=== PATIENT | female | born 1945 | race Caucasian/White ===

== ENCOUNTER → 2018-03-18 15:49 | Outpatient (CLI) | payer OTHER, SELFPAY ==
--- NOTE | 2018-03-18 15:52 | DI.RAD.S_ITS ---
PROCEDURE: XR HIP W PEL IF DONE BILAT 2V INDICATIONS: RIGHT HIP PAIN TECHNIQUE: AP pelvis with lateral view(s) of the bilateral hip(s). COMPARISON: None. FINDINGS: Bones: No fractures or dislocations. Pelvic ring appears intact. No suspicious bony lesions. There is moderately severe degenerative hip joint osteoarthritis very slightly greater on the left than the right. Soft tissues: The visualized bowel gas pattern is normal. No suspicious soft tissue calcifications. IMPRESSION: Left greater than right moderately severe hip joint osteoarthritis with near [id number] articulation at the lateral aspect of the acetabulum on the left. No trauma found. Dictated by: Dakota Jacobson M.D. on 03/18/2018 at 17:04 Approved by: Dakota Jacobson M.D. on 03/18/2018 at 17:04
== END ==
PROVIDERS: Family Provider Physician Assistant; PCP Physician Assistant; Visit Provider Physician Assistant
DX: M16.0 Bilateral primary osteoarthritis of hip (principal); M25.551 Pain in right hip
CPT/HCPCS: 73521

== ENCOUNTER → 2018-05-16 10:22 | Outpatient (CLI) | payer OTHER, SELFPAY ==
--- NOTE | 2018-05-16 | DI.RAD.S_ITS ---
This blank DEXA report has been sent in error by the PACS system. The correct and complete report will be forthcoming in 1-2 days. Thank you for your patience and understanding. Dictated by: Edmond Aguirre M.D. on 05/16/2018 at 12:12 Approved by: Edmond Aguirre M.D. on 05/16/2018 at 12:12
== END ==
PROVIDERS: PCP Physician Assistant; Visit Provider Physician Assistant
DX: M85.851 Other specified disorders of bone density and structure, right thigh (principal); Z78.0 Asymptomatic menopausal state; Z82.62 Family history of osteoporosis
CPT/HCPCS: 77080

== ENCOUNTER → 2019-01-09 08:04 | Outpatient (CLI) | payer OTHER, SELFPAY ==
--- NOTE | 2019-01-09 | DI.MG.S_ITS ---
BILATERAL DIGITAL SCREENING MAMMOGRAM 3D/2D WITH CAD: 01/09/2019 CLINICAL: Routine screening. Family history of breast cancer. Comparison is made to exams dated: 07/02/2017 mammogram - [facility], 01/28/2015 mammogram, and 02/10/2013 mammogram - [facility]. The tissue of both breasts is heterogeneously dense. This may lower the sensitivity of mammography. Current study was also evaluated with a Computer Aided Detection (CAD) system. No significant masses, calcifications, or other findings are seen in either breast. There has been no significant interval change. IMPRESSION: NEGATIVE There is no mammographic evidence of malignancy. A 1 year screening mammogram is recommended. This exam was interpreted at Station ID: [id number]. NOTE: For mammograms, a report in lay terms will be sent to the patient. Approximately 15% of breast malignancies will not be visualized mammographically. In the management of a palpable breast mass, a negative mammogram must not discourage biopsy of a clinically suspicious lesion. Electronically Signed By: Masood valencia/bethanie:01/09/2019 09:28:28 letter sent: Normal Exam ACR BI-RADS Category 1: Negative [id number]
== END ==
PROVIDERS: PCP Registered Nurse; Visit Provider Registered Nurse
DX: Z12.31 Encounter for screening mammogram for malignant neoplasm of breast (principal); Z80.3 Family history of malignant neoplasm of breast
CPT/HCPCS: 77063; 77067

== ENCOUNTER → 2019-03-05 14:42 | Outpatient (CLI) | payer OTHER, SELFPAY ==
[2019-03-05 15:02] LABS: Bacteria Urine None Seen; WBC Urine None Seen (0-5/HPF)
[2019-03-05 15:18] LABS: Appearance Urine UA CLEAR; Bilirubin Urine UA NEGATIVE (NEGATIVE); Color Urine UA YELLOW; Glucose Urine UA NEGATIVE (Negative); Ketones Urine UA NEGATIVE (NEGATIVE); Leukocyte Esterase Urine UA NEGATIVE (NEGATIVE); Nitrite Urine UA NEGATIVE (Negative); Occult Blood Urine UA 1+ (Negative); Protein Urine UA NEGATIVE (Negative); Specific Gravity Urine UA 1.015 (1.000-1.035); Urobilinogen Urine UA 0.2 E.U./dL (0.2)
[2019-03-05 15:21] LABS: pH Urine UA 6.5 (4.5-8.0)
[2019-03-05 15:24] LABS: Amorphous Sediment Urine 1+; Culture Indicated Urine Cult Not Indicated; RBC Urine 0-1/HPF (0-5/HPF); Squamous Epithelial Cell Urine 0-1 /HPF (0-5/HPF)
[2019-03-05 15:25] LABS: Hematocrit 41.8 % (36-46); Mean Corpuscular HGB Conc 33.6 % (30-36); Mean Corpuscular Hemoglobin 30.2 PG (26-34); Mean Corpuscular Volume 89.7 fL (80-100); Platelet Count 279 X10^3/uL (150-400); Red Blood Cell Count 4.65 X10^6/uL (4.0-5.2); White Blood Cell Count 7.3 X10^3/uL (4.5-11.0)
[2019-03-05 15:39] LABS: Hemoglobin A1C% w Est Avg Glu 5.5 % (4.0-6.0)
[2019-03-05 16:09] LABS: BUN Creatinine Ratio 31.4 (6-22); Blood Urea Nitrogen 22 mg/dL (7-17); Calcium 9.8 mg/dL (8.4-10.2); Carbon Dioxide 31 mmol/L (22-32); Chloride 102 mmol/L (98-107); Estimated Glomerular Filt Rate > 60.0 mL/min (>60); Glucose 118 mg/dL (80-110); HEMOLYSIS < 15 (0-50); Sodium 140 mmol/L (137-145)
== END ==
PROVIDERS: Family Provider Registered Nurse; PCP Registered Nurse; Visit Provider Orthopaedic Surgery
DX: N39.0 Urinary tract infection, site not specified (principal); R73.9 Hyperglycemia, unspecified; Z01.818 Encounter for other preprocedural examination
CPT/HCPCS: 36415; 80048; 81001; 83036; 85027; 93005

== ENCOUNTER 2019-03-27 06:10 | Inpatient (IN) | payer OTHER, SELFPAY ==
[2019-03-13 13:58] VITALS: BMI 23.3
[2019-03-27] VITALS (19 sets, daily range): BP systolic 99–134; BP diastolic 46–94; PULSE 64–91; RESP 8–19; TEMP 36.3–36.8; O2SAT 94–100; BMI 22.6
--- NOTE | 2019-03-27 06:00 | DI.RAD.S_ITS ---
PROCEDURE: XR HIP W PEL IF DONE RT 2V INDICATIONS: post op TECHNIQUE: AP pelvis and lateral view of the right hip acquired. COMPARISON: [facility], [place], XR HIP W PEL IF DONE BILAT 2V, 03/18/2018, 15:28. FINDINGS: Bones: Patient is status post right hip arthroplasty, with hardware components in expected positions. The hip joint appears congruent. The visualized bony structures appear intact. Severe left hip joint degeneration which appears unchanged. Soft tissues: Overlying postoperative changes are noted. No suspicious soft tissue densities. IMPRESSION: Expected postoperative appearance. Dictated by: Fredy Hood M.D. on 03/27/2019 at 12:54 Approved by: Fredy Hood M.D. on 03/27/2019 at 12:55
[2019-03-27] MEDS: LACTATED RINGERS 1,000 ML 42 ML IV ×2 (06:45→11:59)
[2019-03-27] MEDS: VANCOMYCIN 1,000 MG/200 ML PIGGYBACK 200 MG IV ×2 (07:00→18:40)
[2019-03-27] MEDS: PREGABALIN 75 MG CAPSULE PO (07:03)
[2019-03-27] MEDS: CELECOXIB 200 MG CAPSULE PO (07:03)
[2019-03-27] MEDS: ACETAMINOPHEN 325 MG TABLET 975 MG PO ×2 (07:03→21:29)
--- NOTE | 2019-03-27 07:48 | PM.PREOP ---
Pre-operative Note Interval Note History & Physical reviewed/Exam performed by Physician: Yes Changes to H&P: No
--- NOTE | 2019-03-27 07:48 | PM.OP.1 ---
Operative Date/Time/Diagnoses Date of procedure: 03/27/19 Time of procedure: 07:59 Pre-op diagnosis: right hip OA Post-op diagnosis: same Procedure & Clinicians Procedure: Right total hip arthroplasty anterior Same procedure as scheduled: Yes Indications: The patient has had progressively worsening right hip pain with radiographic changes consistent with arthritis. Non-operative management has failed and the patient has requested total hip replacement. The risks, benefits and alternatives to surgery were discussed with the patient prior to proceeding. Risks discussed included, but were not limited to, failure to relieve pain, leg length discrepancy, dislocation, stiffness, infection, nerve damage, deep venous thrombosis, pulmonary embolism, stroke, coma, heart attack, permanent paralysis and , as well as the potential need for eventual revision of the prosthetic. Surgeon: Adele Yeung Diesel Mechanic Apprentice: Edelmira Banegas Anesthesia Type: General and Spinal Operative Notes Findings: Severe right hip osteoarthritis, good stability, adequate quality bone Closure Type: primary Specimen(s): none sent Prosthetic devices, grafts, tissues, transplants, or devices: Yeung and Nephew 50 R3, one 15 mm screw, size 6 standard offset anthology, 32 by -3 head Estimated Blood Loss (mL): 250 Blood products transfused: none Procedure in detail: The patient was brought to the operating room. Patient was carefully positioned in the supine position. Time-out was performed and antibiotics were given. Anesthesia was induced. She was positioned in the on the table in order to allow hyperextension of the hip. The right lower extremity was prepped and draped in a standard sterile fashion. An anterior right hip incision was made 1 fingerbreadth lateral to the anterior superior iliac spine and extended distally towards the greater trochanter. Dissection was carried out through skin and subcutaneous tissues. The skin and subcutaneous tissues were carefully injected with Lidocaine with epi. Superficial hemostasis was achieved. The fascia over the tensor fascia felicita was defined and incised with a knife. Two Allis clamps were used to grasp the fascia. Tensor fascia felicita was retracted laterally. A gelpi retractor was placed. Dissection was carried out down along the neck. The circumflex vessels were carefully identified and cauterized with the Aqua Mantis. There was good visualization of the femoral neck. A Cobra was placed superior to the neck and the gluteus fibers were carefully stripped from that superior aspect of the capsule. A 2nd retractor was placed along the inferior aspect of the neck. The rectus insertion along the capsule was partially released. A 3rd retractor that was then gently placed over the rim of the acetabulum under the rectus. Capsule was carefully incised and released from the intertrochanteric line circumferentially superior to the mid sagittal line and inferiorly to the mid sagittal line until the lesser trochanter was palpable. A tag stitch was placed both in the superior and inferior limb of the capsular insertion. Along the acetabulum capsule was also released up to the mid sagittal 12:00 position. A portion of the labrum was resected. A saw was used to perform an osteotomy at the level of the intertrochanteric line and the junction of the superior femoral neck leaving approximately 1 finger breath of residual inferior neck above the lesser trochanter. A 2nd cut was made along the femoral neck at the base of the head and a napkin ring of neck was removed. Corkscrew was placed in the femoral head and the head was removed without difficulty. Retractors were then repositioned around the acetabulum. Residual labrum was resected and additional osteophytes were removed. A reamer that was 4 mm below the templated size was placed by hand in the acetabulum and it was reamed to centralize the acetabulum. It was then reamed up to 2 under the templated size and fluoroscopy was brought in to confirm the position of the reaming and depth of reaming. I reamed 1 under the anticipated size. A trial cup was placed and noted that it was appropriately sized and fluoroscopy confirmed position and depth. The component was open and inserted without difficulty fluoroscopic imaging was used to confirm that the cup had been adequately seated and was well positioned. A single 15 mm screw was placed to further stabilize the cup. Neutral poly trial liner was placed. The cup was tested and noted to be stable. Attention was then directed to the femur. The femur was gently hyperextended additional capsular release was performed as needed in order to allow adequate visualization of the proximal femur with elevation of the femur. Patient was placed in a hyperextended slightly adducted position with maximum external rotation. Box osteotome was used to check for any residual neck as well as sclerotic bone along the trochanter. Burgaw pepper was placed in the femur. Additional broaching was performed. Canal finder was used to determine the alignment of the canal and position. Size 1 broach was placed. The canal was then appropriately broached up to the templated size as long as there was adequate stability of the broach and serial advancement of the broach without excessive impingement. Specific attention was directed at avoiding varus attempting to direct the distal aspect of the broach more anteriorly and avoiding excessive anteversion. Trial reduction showed acceptable range of motion, good stability, no posterior impingement, mandaeism of leg length and appropriate lateral shuck. I also hyperflexed the hip and checked that there was no impingement anteriorly and there was good stability with flexion, adduction and internal rotation. Final neutral poly was placed without difficulty. Marcaine and Exparel were injected.. The stem was placed without difficulty. Repeat trial reduction and x-ray showed acceptable overall position, length, and no evidence of the femoral fracture. Final head was placed. Wound was meticulously irrigated with normal saline. The hip was reduced and additional Exparel and Marcaine were injected. The capsule was closed with interrupted nonabsorbable sutures. The fascia of the tensor was closed with interrupted and running Vicryl. No drain was placed. Any tensor fascia felicita muscle that appeared to be contused or injured which was a minimal amount was carefully resected. Capsule around the tensor was injected with Exparel and Marcaine. The skin was closed with barbed stitches for the subcutaneous tissue and skin. We also used surgical glue. The wound was dressed sterilely. Brief Betadine soak was also used and was meticulously irrigated with normal saline. Patient was transferred to recovery room in satisfactory condition. Complications: none Post-operative Condition: stable Disposition: Acute Care Plan for aftercare: The patient will be maintained on a standard total hip replacement protocol with weight bearing as tolerated and anterior hip precautions. The patient will receive Aspirin and sequential compression devices for DVT prophylaxis. The patient will be discharged home when safe for the home environment.
[2019-03-27] MEDS: CLINDAMYCIN 600 MG/50 ML PIGGYBACK 50 MG IV (07:53)
--- NOTE | 2019-03-27 08:35 | SUR.OPER ---
Head on donut. Supine on [place] table with bilateral legs secured in traction. Right arm across chest, secured with sheet. Left arm secured to armboard.
[2019-03-27] MEDS: BUPIVACAINE 0.25% W/ EPI 30 ML VIAL 60 ML INJ (08:41)
[2019-03-27] MEDS: BUPIVACAINE LIPOSOME 266 MG/20 ML VIAL INJ (08:42)
[2019-03-27] MEDS: TRANEXAMIC ACID 1,000 MG VIAL 1000 MG INJ ×2 (08:43→10:47)
--- NOTE | 2019-03-27 09:12 | CM.IDA ---
Discharge Planning/Care Management CM Discharge Assessment Start: 03/27/19 09:07 Freq: Status: Active Protocol: Document 03/27/19 09:07 ORLIN (Rec: 03/27/19 09:12 ORLIN [id number]) Discharge Planning Assessment Assigned Senior Contract Specialist ANASTACIO Edwards DPOA/Assigned Designee Name Senthil () Contact Information [phone] Advance Directives? Yes Advance Directives on File No History Provided By Medical Record Prior Living Arrangements House Household Members spouse Type of transporation used prior to Drives own vehicle admit Independent with ADL's Yes Is patient alert and oriented? Yes Patient/Family Preference OP PT Therapy Barriers to Discharge No Comment Pending clearance from therapy team s/p hip surgery Discharge Plan Home Transportation Arrangement Family Referrals Initiated None needed Additional Comment Pending therapy reji pt wants to return home Review Status In Process
[2019-03-27] MEDS: HYDROMORPHONE 2 MG INJ 1 MG IV (11:32)
[2019-03-27] MEDS: hydrOXYzine 50 MG/ML INJ 25 MG IM (11:33)
[2019-03-27] MEDS: HYDROMORPHONE 2 MG INJ 0.5 MG IV ×2 (11:48→12:01)
--- NOTE | 2019-03-27 12:44 | SUR.PHASEI ---
report given to charge nurse in acute care. RN taking pt is Chloe. Traveled to on 2L 02 for shallow breaths, all other VS are stable. Transferred to in stable condition.
[2019-03-27] MEDS: LACTATED RINGERS 1,000 ML 125 ML IV ×2 (14:55→23:26)
--- NOTE | 2019-03-27 15:47 | PC.NURSE ---
Day Shift- PACU reported called to RN Coordinator Ann. Pt arrived onto unit at 1250, [employer]OVELTY [employer]KER & RN Coordinator settled pt on arrival. This RN assessed pt at 1340. Pt drowsy, arousable, does close eyes and fall asleep during conversation. Pt's Senthil present in room. Pt's post op outpatient meds in room, asked jules to keep with him and that any medication would come from this hospital pharmacy per protocol. Senthil agreeable with this. Pt right hip anterior aquacel dressing CDI, CMS+, pt denies pain, no urge to void. O2 sat 99% on 2L NC, decreased to 1L NC, O2 sat 97%. Pt oriented to filiberto light, post op routines, use of incentive spirometer, ankle pumps. Pt's asking for pt's glasses in a flower case that went with pt to surgery. PACU called around 1445, they have glasses and will bring to pt.
--- NOTE | 2019-03-27 15:53 | PT.IIE ---
Note completed by PT student Trixie Colon. I certify that I have reviewed this documentation and is involved in this pt's tx. Current Diagnoses Unilateral primary osteoarthritis, right hip (03/27/19) Surgery Performed Operation Date: 03/27/19 07:45 Actual Procedures p Total Hip Arthroplasty/Anterior Approach(Right) - Adele Yeung MD Surgical History (Last Updated 03/13/19 @ 14:14 by Adry Alas RN) History of bunionectomy of both great toes (Acute) Hx of hand surgery (Acute) Hx of oral surgery (Acute ~06/2018) Medical History (Last Updated 03/13/19 @ 14:14 by Adry Alas RN) Arthritis (Acute) GERD with esophagitis (Acute) Hypoglycemia (Acute) Insomnia (Acute) Osteoarthritis (Acute) Physical Therapy Inpatient Evaluation/Re-Eval M1 PT/OT-IP Prior Functional Status Start: 03/27/19 16:59 Freq: NEEDED Status: Active Protocol: Document 03/27/19 15:53 MT (Rec: 03/27/19 17:43 MT [id number]) Medical Review Prior Functional Status Medical History Reviewed Yes Diet/Fluid Consistency Regular Communication Pt was able to verbally communicate Mobility and Gait Pt reported being independent with all mobility. She reported that she only had to use a single point cane the day before d/t R hip pain Activities of Daily Living and IADL's Pt reported independence with all ADL's/iADL's but said that she had trouble sometimes putting her socks on. Social History Household Members spouse Living Arrangements House Number of Floors (Floors) One Floor Number of Stairs To Enter/Railing? 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 PT-IP Current Condition Start: 03/27/19 16:59 Freq: NEEDED Status: Active Protocol: Document 03/27/19 15:53 MT (Rec: 03/27/19 17:43 MT [id number]) Physical Therapy Current Condition Current Condition Evaluation Date 03/27/19 Treatment Diagnosis reduced mobility and difficulty walking post R FERNANDO Onset Date 03/27/19 Precautions Anterior Hip Precautions No Hip Extension,No Hip External Rotation Weight Bearing Status Weight Bearing Status Weight Bear as Tolerated M3 PT-IP Subjective Start: 03/27/19 16:59 Freq: NEEDED Status: Active Protocol: Document 03/27/19 15:53 MT (Rec: 03/27/19 17:43 MT [id number]) Subjective Physical Therapy Visit Type Type Initial Evaluation Visit Start Time 15:53 Visit Stop Time 16:54 Total Visit Minutes 61 Number of AUTO APPRAISER Visits 0 Physical Therapy Visit Comments Patient Comments Pt remarked that she was very tired following her R FERNANDO surgery. Therapy Pain Assessment Pain When Pain Assessed At Rest Pain Present Pain Present Reassessed Location right hip Intensity 0 Scale Used increased during movement Description Aching,Dull Pain Behaviors Facial Grimacing Pain Management Techniques Apply Cold,Elevation,Re- positioning,Timing of Activity with Medications M4 PT-IP Mobility and Gait Start: 03/27/19 16:59 Freq: NEEDED Status: Active Protocol: Document 03/27/19 15:53 MT (Rec: 03/27/19 17:43 MT [id number]) PT-Bed Mobility Assessment Supine to Sit Supine to Sit Moderate Assistance,1 Person Assistance Sit to Supine Sit to Supine Minimal Assistance,1 Person Assistance Scooting Scooting to Edge of Bed Minimal Assistance PT-Transfer Assessment Sit to and From Stand Sit to and from Stand Moderate Assistance,1 Person Assistance Equipment Transfer Assistive Device Gait Belt,Front Wheeled Walker Orthotic/Prosthetic Devices or Brace: No Transfers Transfer Destination Bed,Bedside Commode Transfer Technique Stand Step Pivot Transfer Ability Level of Assist Moderate Assistance Comments Mobility Comments Pt was able to perform supine to sit transfer with modA and cueing for sequencing of movement. Pt was very slow with the movements, but was eventually able to completely perform movement with assistance for R leg movement. Pt transferred to/from bedside commode from bed with ModA. Once pt standing, she was able to stand with CGA. Pt's blood pressure was initally taken before initiaion of bed mobility assessment. Pt's BP was 111/ 41. Pt reported that she was feeling shakey and was tired. Nursing was notified of the BP. Pt's BP was then assessed in sitting and found to be 127/70. After pt tranferred to the commode her BP was found to be 134/54. Pt was positioned back in bed d/t increased shakiness with her call light in reach. Gait Assessment Comments Gait Comments pt unable to tolerate gait activities PT-Balance Assessment Sitting Balance and Reactions Static Sitting Balance Ability Good Dynamic Sitting Balance Ability Good Standing Balance and Reactions Static Standing Balance Ability Fair Dynamic Standing Balance Ability Fair Device Used 2WW M5 PT-IP Objective Assessments Start: 03/27/19 16:59 Freq: NEEDED Status: Active Protocol: Document 03/27/19 15:53 MT (Rec: 03/27/19 17:43 MT [id number]) Orientation Orientation/Cognition Level of Alertness Alert Orientation Name,Age,Birthday,Month,Date, Year,Day of Week,Place, Situation Safety Awareness Decreased Safety Awareness Memory Description Short Term Impaired Comments Pt was oriented, but struggled to maintain alertness during evaluation and was frequently falling asleep. This improved as pt began to move more. She struggled at first being able to form complete sentences, but this improved as the session went on. She was unable to recall her precautions for her anterior FERNANDO and reuiqres frequent cueing/reminding of what task she is trying to complete and sequencing to complete that task as well as safety. Gross Range of Motion Lower Extremity ROM Assessment Right Impaired Impairments Pt demonstrates pain and limited ROM with R hip flexion . Strength Lower Extremity Strength Assessment Bilaterally Impaired Hip R: 3-/5 hip flexion; L:4/5 hip flexion Knee R: 3/5 knee flexion/extension; L:WFL Ankle R: 3+/5 DF; L:WFL Comments Strength Comments Pt demonstrated generally R LE weakness. She also demonstrated some weakness on her L LE with hip flexion Coordination Assessment Gross Coordination Gross Coordination WNL Muscle Tone Muscle Tone WNL Yes M6 PT-IP Treatment Start: 03/27/19 16:59 Freq: NEEDED Status: Active Protocol: Document 03/27/19 15:53 MT (Rec: 03/27/19 17:43 MT [id number]) Physical Therapy Treatment Education Education Provided Precautions,Weight Bearing Status,Post-Op Packet,Safety M7 PT-IP Assessment and Plan Start: 03/27/19 16:59 Freq: NEEDED Status: Active Protocol: Document 03/27/19 15:53 MT (Rec: 03/27/19 17:43 MT [id number]) PT Summary Assessment and Plan Potential Rehabilitation Potential Good Status of Condition at Evaluation Evolving Summary Impairments Pain,ROM,Strength,Balance, Cognition,Bed Mobility, Transfers,Gait,Activity Tolerance Assessment Summary Pt presents with decreased mobility s/p R FERNANDO. She presented with lethargy and was frequently falling asleep during history-taking portion of eval but became more alert as she moved. She is able to perform supine <> sit bed mobility with Min-ModA, but struggles with sequencing of steps to achieve functional task and requires max verbal cues. Pt's BP was 111/44 prior to initiating movement and elevated as pt performed mobility tasks (see Mobility Assessment for full description). Pending that her is able to safely assist her and that she increases her ability to ambulate safely, she will be able to discharge home with assistance from her . Goals Bed Mobility Goal Standby Assistance Transfer Goal Standby Assistance,Front Wheeled Walker Gait Goal Standby Assistance,Front Wheel Walker Gait Distance 100 ft Days to Meet Goals 5 Frequency of Treatment Frequency Of Treatment Twice a Day Treatment Plan Physical Therapy Treatment Plan Bed Mobility Training,Transfer Training,Gait Training, Therapeutic Exercise,Balance Retraining,Post Op Education, Discharge Planning,Hot or Cold Pack,Neuromuscular Re-ed Other Recommendations and Next Treatment next treatment to focus on Focus increasing independence for sequencing and safety with bed mobility and transfers, gait training, caregiver training Recommendations To Nursing Amount of Assist Needed 1 Person Assist Discharge Recommendations PT Discharge Recommendations Home with Assistance, Outpatient PT Other Discharge Recommendations Pt will be able to receive assistance from her at home. She has outpatient PT set up.
[2019-03-27] MEDS: OXYCODONE IR 5 MG TABLET PO ×2 (18:40→21:30)
[2019-03-27] MEDS: ASPIRIN EC 81 MG TABLET PO (21:29)
[2019-03-27] MEDS: DOCUSATE 100 MG CAPSULE PO (21:29)
[2019-03-27] MEDS: NAPROXEN 250 MG TABLET PO (21:29)
[2019-03-28 00:15] VITALS: BP 106/54; PULSE 74; RESP 16; TEMP 36.5; O2SAT 94
--- NOTE | 2019-03-28 05:10 | PC.NURSE ---
No c/o pain this shift. Used the bedpan for urination. Aquacell dressing CDI.
[2019-03-28 05:12] VITALS: BP 113/55; PULSE 65; RESP 16; TEMP 36.4; O2SAT 98
[2019-03-28 07:04] LABS: Hematocrit 32.9 % (36-46); Hemoglobin 11.3 g/dL (12.0-16.0)
[2019-03-28] MEDS: OXYCODONE IR 5 MG TABLET PO ×2 (07:33→10:13)
[2019-03-28 07:45] VITALS: BP 148/54; PULSE 63; RESP 16; TEMP 36.5; O2SAT 100
[2019-03-28] MEDS: NAPROXEN 250 MG TABLET PO (08:59)
[2019-03-28] MEDS: ASPIRIN EC 81 MG TABLET PO (08:59)
[2019-03-28] MEDS: ACETAMINOPHEN 325 MG TABLET 975 MG PO ×2 (08:59→14:39)
[2019-03-28] MEDS: DOCUSATE 100 MG CAPSULE PO (08:59)
--- NOTE | 2019-03-28 09:50 | PT.IPTN ---
Current Diagnoses Unilateral primary osteoarthritis, right hip (03/27/19) Surgery Performed Operation Date: 03/27/19 07:45 Actual Procedures p Total Hip Arthroplasty/Anterior Approach(Right) - Adele Yeung MD Physical Therapy Treatment Note M2 PT-IP Current Condition Start: 03/27/19 16:59 Freq: NEEDED Status: Active Protocol: Document 03/27/19 15:53 MT (Rec: 03/27/19 17:43 MT [id number]) Physical Therapy Current Condition Current Condition Evaluation Date 03/27/19 Treatment Diagnosis reduced mobility and difficulty walking post R FERNANDO Onset Date 03/27/19 Precautions Anterior Hip Precautions No Hip Extension,No Hip External Rotation Weight Bearing Status Weight Bearing Status Weight Bear as Tolerated M3 PT-IP Subjective Start: 03/27/19 16:59 Freq: NEEDED Status: Active Protocol: Document 03/28/19 09:50 AB (Rec: 03/28/19 10:58 AB [id number]) Subjective Physical Therapy Visit Type Type Treatment Note Visit Start Time 09:50 Visit Stop Time 10:30 Total Visit Minutes 40 Number of INVERTED BLOCK OPERATOR Visits 0 Physical Therapy Visit Comments Patient Comments pt agreeable to do PT Therapy Pain Assessment Pain When Pain Assessed At Rest Pain Present Pain Present Pain Reported Location right hip Intensity 2 Scale Used increases to 5/10 with mobility Pain Behaviors Guarding Pain Management Techniques Apply Cold,Re-positioning, Timing of Activity with Medications M4 PT-IP Mobility and Gait Start: 03/27/19 16:59 Freq: NEEDED Status: Active Protocol: Document 03/28/19 09:50 AB (Rec: 03/28/19 10:58 AB [id number]) PT-Bed Mobility Assessment Supine to Sit Supine to Sit Minimal Assistance,1 Person Assistance Sit to Supine Sit to Supine Standby Assistance Scooting Scooting to Edge of Bed Standby Assistance Scooting Up and Down in Bed Standby Assistance PT-Transfer Assessment Sit to and From Stand Sit to and from Stand Minimal Assistance,1 Person Assistance Equipment Transfer Assistive Device Gait Belt,Front Wheeled Walker Orthotic/Prosthetic Devices or Brace: No Transfers Transfer Destination Bed Transfer Technique pt ambulated using FWW Transfer Ability Level of Assist Standby Assistance,1 Person Assistance,Use of Upper Extremities Comments Mobility Comments pt found sitting on chair. BP: 103/52. completed sit to stand. pt was able to maintain standing SBA using FWW for support. BP: 118/67. pt was ablet o tolerate ~ 3 min of standing. BP: 115/53. Pt ambulated in room using FWW SBA to occasional CGA 30 ft. BP after walkin/49. pt agreed to ambulate in hallway. spouse present and educated spouse on how to assist and cue pt with bed mobility, transfers and ambulation. spouse was able to cue pt appropriately. bed mobility training: pt required min A for RLE elevation to the bed during supine to sit. educated spouse on how to assist pt with bed mobility. completed sit to supine SBA. pt requested to stay up on chair after tx session. positioned on the chair. call light and table placed within reach. BP: 119/65 Gait Assessment Gait Gait Assistance Required: Standby Assistance,Contact Guard Assist Distance (Feet) 75 Able to Maintain Weight Bearing Status Yes During Gait Assistive Devices Assistive Device Gait Belt,Front Wheeled Walker Orthotic/Prosthetic Devices or Brace: No Gait Deviations General Gait Pattern Antalgic,Decreased Stride Length,Decreased Feet Clearance Factors Limiting Gait Function Factors Limiting Gait Function Decreased Activity Tolerance, Decreased Strength,Difficulty Following Directions,Limited Range of Motion,Pain,Poor Balance,Poor Safety Awareness M5 PT-IP Objective Assessments Start: 03/27/19 16:59 Freq: NEEDED Status: Active Protocol: Document 03/27/19 15:53 MT (Rec: 03/27/19 17:43 MT [id number]) Orientation Orientation/Cognition Level of Alertness Alert Orientation Name,Age,Birthday,Month,Date, Year,Day of Week,Place, Situation Safety Awareness Decreased Safety Awareness Memory Description Short Term Impaired Comments Pt was oriented, but struggled to maintain alertness during evaluation and was frequently falling asleep. This improved as pt began to move more. She struggled at first being able to form complete sentences, but this improved as the session went on. She was unable to recall her precautions for her anterior FERNANDO and reuiqres frequent cueing/reminding of what task she is trying to complete and sequencing to complete that task as well as safety. Gross Range of Motion Lower Extremity ROM Assessment Right Impaired Impairments Pt demonstrates pain and limited ROM with R hip flexion . Strength Lower Extremity Strength Assessment Bilaterally Impaired Hip R: 3-/5 hip flexion; L:4/5 hip flexion Knee R: 3/5 knee flexion/extension; L:WFL Ankle R: 3+/5 DF; L:WFL Comments Strength Comments Pt demonstrated generally R LE weakness. She also demonstrated some weakness on her L LE with hip flexion Coordination Assessment Gross Coordination Gross Coordination WNL Muscle Tone Muscle Tone WNL Yes M6 PT-IP Treatment Start: 03/27/19 16:59 Freq: NEEDED Status: Active Protocol: Document 03/28/19 09:50 AB (Rec: 03/28/19 10:58 AB [id number]) Physical Therapy Treatment Education Education Provided Precautions,Weight Bearing Status,Post-Op Packet,Safety M7 PT-IP Assessment and Plan Start: 03/27/19 16:59 Freq: NEEDED Status: Active Protocol: Document 03/28/19 09:50 AB (Rec: 03/28/19 10:58 AB [id number]) PT Summary Assessment and Plan Potential Rehabilitation Potential Good Summary Impairments Pain,ROM,Strength,Balance, Coordination,Sensation,Tone, Cognition,Bed Mobility, Transfers,Gait,Activity Tolerance Progress Towards Goals Progressing Toward Goals Assessment Summary pt requiring SBA to occasional CGA with transfers and ambulation. spouse will be able to assist pt at home. pt plans to go home later today. pt is already set up for outpt PT. Goals Bed Mobility Goal Standby Assistance Transfer Goal Standby Assistance,Front Wheeled Walker Gait Goal Standby Assistance,Front Wheel Walker Gait Distance 100 ft Days to Meet Goals 5 Frequency of Treatment Frequency Of Treatment Twice a Day Treatment Plan Physical Therapy Treatment Plan Bed Mobility Training,Transfer Training,Gait Training, Therapeutic Exercise,Balance Retraining,Post Op Education, Discharge Planning,Hot or Cold Pack,Neuromuscular Re-ed Recommendations To Nursing Amount of Assist Needed 1 Person Assist Discharge Recommendations PT Discharge Recommendations Home with Assistance, Outpatient PT
--- NOTE | 2019-03-28 14:43 | PC.NURSE ---
Day shift: Pt left unit at this time to private car via . Paperwork signed and all questions answered. Pt has all personal belongings as well as MD scrips. 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
== END 2019-03-28 14:44 | disposition home or self-care (01) | DRG 470 ==
PROVIDERS: Admitting Provider Orthopaedic Surgery; Family Provider Registered Nurse; PCP Registered Nurse; Visit Provider Orthopaedic Surgery
PROC: 0SR902Z Replacement of Right Hip Joint with Metal on Polyethylene Synthetic Substitute, Open Approach (ICD-10-PCS; CPT 27130; principal; 2019-03-27 07:45)
DX: M16.11 Unilateral primary osteoarthritis, right hip (principal)
CPT/HCPCS: 36415; 73502; 85014; 85018; 97116; 97162; 97530; C1776; C9290; J1100; J1170; J2250; J2405; J2704; J3010; J3410

== ENCOUNTER 2019-04-11 23:38 | Emergency (ER) | payer OTHER, SELFPAY ==
[2019-03-27 13:45] VITALS: BMI 22.6
--- NOTE | 2019-04-11 23:42 | DI.US.S_ITS ---
PROCEDURE: US PERIPH VENOUS LOW EXTREM RT INDICATIONS: PAIN, EDEMA POST OP TECHNIQUE: Real-time imaging, as well as color and pulse Doppler interrogation, were performed of the lower extremity deep veins from the inguinal ligament to the popliteal fossa. COMPARISON: None. FINDINGS: The common femoral, femoral and popliteal veins are normally compressible, and free of intraluminal thrombus. Color and pulse Doppler demonstrate normal phasic intraluminal flow. There is normal augmentation response to distal compression maneuver. IMPRESSION: Negative for deep venous thrombosis. Note: No significant discrepancy from the preliminary report. Dictated by: Rusty Ford M.D. on 04/12/2019 at 8:15 Approved by: Rusty Ford M.D. on 04/12/2019 at 8:16
--- NOTE | 2019-04-11 23:44 | ED.LOWEXIN ---
HPI - Extremity Injury (Lower) General Chief Complaint: Extremity Injury, Lower Stated Complaint: sudden sharp pain in r calf, had hip sgy 2 wks ago Time Seen by Provider: 04/11/19 23:42 Source: patient and family Mode of arrival: Ambulatory Limitations: no limitations History of Present Illness HPI Narrative: 73-year-old female nonsmoker presents with her and a chief complaint of a sudden onset right calf pain while standing in the kitchen just prior to her arrival. Her symptoms persisted about 15 minutes but had resolved prior to her arrival. She denies any ongoing symptoms whatsoever. She has no numbness, tingling or weakness. She denies any activities or injuries. She denies any dizziness, weakness or lightheadedness. She has no chest pain or shortness of breath. She had a right hip surgery on March 27 and was told to present to the emergency department immediately for any calf pain or swelling. She has been doing very well in the aftermath of her surgery and was at physical therapy today. MD complaint: other Onset (ago): minute(s) Place: home Exacerbating factors: movement Other symptoms: none Related Data Home Medications Medication Instructions Recorded Confirmed fluticasone propionate [Flonase 2 spray INTRANASAL DAILY PRN 03/13/19 03/27/19 Allergy Relief] naproxen sodium [Aleve] 220 mg PO BID 03/13/19 03/27/19 Previous Rx's Medication Instructions Recorded acetaminophen 975 mg PO TID #40 tab 03/28/19 aspirin 81 mg PO BID #40 tab 03/28/19 docusate sodium [DOK] 100 mg PO BID #30 cap 03/28/19 oxycodone 5 mg PO Q3HR PRN #1 tab 03/28/19 Allergies Allergy/AdvReac Type Severity Reaction Status Date / Time amoxicillin Allergy Severe Itching to Verified 04/11/19 23:48 hands/feet latex Allergy Severe Red skin, Verified 04/11/19 23:48 welts epinephrine AdvReac Severe Hyperactive, Verified 04/11/19 23:48 dizziness Review of Systems Constitutional Constitutional: Denies chills, Denies fatigue, Denies fever(s), Denies frequent falls, Denies lethargy and Denies weakness Eyes Eyes: Denies change in vision, Denies eye discharge, Denies irritation and Denies loss of vision ENT Ears, Nose, Mouth, and Throat: Denies change in voice, Denies dizziness, Denies neck pain, Denies sore throat and Denies throat swelling Cardiovascular Cardiovascular: Denies chest pain, Denies irregular heart rhythm, Denies lightheadedness, Denies palpitations, Denies dyspnea, Denies dyspnea on exertion and Denies orthopnea Respiratory Respiratory: Denies cough, Denies dyspnea, Denies dyspnea on exertion and Denies wheezing Gastrointestinal Gastrointestinal: Denies abdominal pain, Denies change in bowel habits, Denies diarrhea, Denies nausea and Denies vomiting Genitourinary Genitourinary: Denies hematuria, Denies flank pain, Denies urinary incontinence and Denies urinary urgency Musculoskeletal Musculoskeletal: Denies back pain, Denies muscle weakness, Denies neck pain, Denies numbness, Denies tingling and Reports other Integumentary/Breasts Skin/Breast: Denies pruritus, Denies erythema, Denies rash and Denies wounds Neurologic Neurologic: Denies behavioral changes, Denies confusion, Denies dizziness, Denies frequent falls, Denies loss of vision, Denies numbness, Denies tingling and Denies weakness Psychiatric Psychiatric: Denies anxiety, Denies behavioral changes, Denies confusion, Denies depression, Denies homicidal ideation and Denies suicidal ideation Endocrine Endocrine: Denies fatigue, Denies flushing and Denies palpitations Hematologic/Lymphatic Hematologic/Lymphatic: Denies easy bruising Allergic/Immunologic Allergic/Immunologic: Denies urticaria, Denies throat swelling and Denies wheezing Patient History Medical History Arthritis (Acute) GERD with esophagitis (Acute) Hypoglycemia (Acute) Insomnia (Acute) Osteoarthritis (Acute) Surgical History History of bunionectomy of both great toes (Acute) Hx of hand surgery (Acute) Hx of oral surgery (Acute ~06/2018) Social History household members: spouse Smoking Status: Never smoker alcohol intake: current alcohol intake frequency: a few times a week Substance Use Type: does not use Exam Narrative Exam Narrative: GEN: AOx3 and in mild distress EYES: Pupils are equal, round, and reactive to light and accommodation. Extraoccular muscles are intact bilaterally. There is no subconjunctival hemorrhage or exudate. CHEST: Lungs are clear to auscultation bilaterally and free of wheezes, rales, or rhonchi. Heart rate is regular rhythm, there are no murmurs, clicks, rubs, or gallops. There is no chest wall tenderness. ABD: Abdomen is soft and nontender. There is no guarding or rebound. Bowel sounds are normal in all 4 quadrants. There is no mass or organomegaly. EXT: Pain was palpation of right knee and calf. There is some swelling with yellowing bruising coming down from the hip. Dorsalis pedis and posterior tibial pulses are palpable. Cap refill less than 2 seconds and sensation intact. No pain with passive flexion and ankle. Full painless ROM of all extremities with no loss of sensation or strength. SKIN: Warm, pink, and dry. No erythema or rash Initial Vital Signs Initial Vital Signs: Vital Signs Temperature 98.2 F 04/11/19 23:46 Pulse Rate 74 04/11/19 23:46 Respiratory Rate 16 04/11/19 23:46 Blood Pressure 150/62 H 04/11/19 23:46 Pulse Oximetry 98 04/11/19 23:46 Course Orders Ordered: ED Orders 04/11/19 23:42 US periph venous low extrem rt Stat Vital Signs Vital signs: Vital Signs - 8 hr 04/11/19 23:46 Temperature 98.2 F Pulse Rate 74 Respiratory Rate 16 Blood Pressure 150/62 H Pulse Oximetry 98 Discharge Plan Departure Patient Disposition: Home Clinical Impression: Pain of right calf Discharge Date/Time: 04/12/19 00:20 Activity Restrictions/Additional Instructions: *You have been diagnosed with [right calf pain, resolved. Deep vein thrombosis considered but ultrasound was negative] *What to do: *Take medications as directed *Follow up with your primary care provider in 2-3 days, call for an appointment. Let them know you were seen in the Emergency Department and that we ask that you be seen in follow up *Return to ER if you should have any new, worsening or concerning symptoms, such as [recurrence of pain, development of warmth or redness. A recurrence of these symptoms would potentially warrant a repeat ultrasound] Prescriptions: No Action fluticasone propionate [Flonase Allergy Relief] 50 mcg/actuation [place],Suspension 2 spray INTRANASAL DAILY PRN (Reason: Seasonal allergies) RF: 0 naproxen sodium [Aleve] 220 mg Capsule 220 mg PO BID RF: 0 acetaminophen 325 mg Tablet 975 mg PO TID Qty: 40 RF: 0 aspirin 81 mg Tablet,Delayed Release (Dr/Ec) 81 mg PO BID Qty: 40 RF: 0 docusate sodium [DOK] 100 mg Capsule 100 mg PO BID Qty: 30 RF: 0 oxycodone 5 mg Tablet 5 mg PO Q3HR PRN (Reason: Pain, Moderate (4-6)) Qty: 1 RF: 0 Referrals: Juma Ramos ARNP [Primary Care Provider] - Adele Yeung MD [Physician] -
[2019-04-11 23:46] VITALS: BP 150/62; PULSE 74; RESP 16; TEMP 36.8; O2SAT 98; BMI 23.1
== END 2019-04-12 00:20 | disposition home or self-care (01) ==
PROVIDERS: Emergency Provider Emergency Medicine; PCP Registered Nurse
DX: M79.661 Pain in right lower leg (principal)
CPT/HCPCS: 93971; 99282; 99283

== ENCOUNTER → 2020-01-14 11:15 | Outpatient (CLI) | payer MEDICARE, SELFPAY ==
[2019-03-27 13:45] VITALS: BMI 22.6
--- NOTE | 2020-01-14 | DI.MG.S_ITS ---
BILATERAL DIGITAL SCREENING MAMMOGRAM 3D/2D WITH CAD: 01/14/2020 CLINICAL: Routine screening. Family history of breast cancer. Comparison is made to exams dated: 01/09/2019 mammogram, 07/02/2017 mammogram - [facility], and 01/28/2015 mammogram - [facility]. The tissue of both breasts is heterogeneously dense. This may lower the sensitivity of mammography. Current study was also evaluated with a Computer Aided Detection (CAD) system. No significant masses, calcifications, or other findings are seen in either breast. There has been no significant interval change. IMPRESSION: NEGATIVE There is no mammographic evidence of malignancy. A 1 year screening mammogram is recommended. This exam was interpreted at Station ID: [id number]. NOTE: For mammograms, a report in lay terms will be sent to the patient. Approximately 15% of breast malignancies will not be visualized mammographically. In the management of a palpable breast mass, a negative mammogram must not discourage biopsy of a clinically suspicious lesion. Electronically Signed By: Lam escobar/bethanie:01/14/2020 14:46:18 letter sent: Normal Exam ACR BI-RADS Category 1: Negative 3341F
== END ==
PROVIDERS: PCP Registered Nurse; Referring Provider Registered Nurse; Visit Provider Registered Nurse
DX: Z12.31 Encounter for screening mammogram for malignant neoplasm of breast (principal); Z80.3 Family history of malignant neoplasm of breast
CPT/HCPCS: 77063; 77067

== ENCOUNTER → 2021-02-03 17:18 | Outpatient (CLI) | payer MEDICARE, SELFPAY ==
[2019-03-27 13:45] VITALS: BMI 22.6
--- NOTE | 2021-02-03 | DI.MG.S_ITS ---
BILATERAL DIGITAL SCREENING MAMMOGRAM 3D/2D WITH CAD: 02/03/2021 CLINICAL: Routine screening. Family history of breast cancer. Comparison is made to exams dated: 01/14/2020 mammogram, 01/09/2019 mammogram, and 07/02/2017 mammogram - [facility]. The tissue of both breasts is heterogeneously dense. This may lower the sensitivity of mammography. Current study was also evaluated with a Computer Aided Detection (CAD) system. No significant masses, calcifications, or other findings are seen in either breast. There has been no significant interval change. IMPRESSION: NEGATIVE There is no mammographic evidence of malignancy. A 1 year screening mammogram is recommended. This exam was interpreted at Station ID: [id number]. NOTE: For mammograms, a report in lay terms will be sent to the patient. Approximately 15% of breast malignancies will not be visualized mammographically. In the management of a palpable breast mass, a negative mammogram must not discourage biopsy of a clinically suspicious lesion. Electronically Signed By: Elda wagner/bethanie:02/04/2021 08:42:43 letter sent: Normal Exam ACR BI-RADS Category 1: Negative 3341F
== END ==
PROVIDERS: PCP Registered Nurse; Referring Provider Registered Nurse; Visit Provider Registered Nurse
DX: Z12.31 Encounter for screening mammogram for malignant neoplasm of breast (principal); Z80.3 Family history of malignant neoplasm of breast
CPT/HCPCS: 77063; 77067

== ENCOUNTER → 2022-03-02 09:17 | Outpatient (CLI) | payer MEDICARE, SELFPAY ==
[2019-03-27 13:45] VITALS: BMI 22.6
--- NOTE | 2022-03-02 | DI.MG.S_ITS ---
BILATERAL DIGITAL SCREENING MAMMOGRAM 3D/2D WITH CAD: 03/02/2022 CLINICAL: Routine screening. Family history of breast cancer. Comparison is made to exams dated: 02/03/2021 mammogram, 01/14/2020 mammogram, and 01/09/2019 mammogram - [facility]. Both breasts are heterogeneously dense, which may obscure small masses (category c / 51-75% glandular tissue). Current study was also evaluated with a Computer Aided Detection (CAD) system. No significant masses, calcifications, or other findings are seen in either breast. There has been no significant interval change. IMPRESSION: NEGATIVE There is no mammographic evidence of malignancy. A 1 year screening mammogram is recommended. This exam was interpreted at Station ID: [id number]. NOTE: For mammograms, a report in lay terms will be sent to the patient. Approximately 15% of breast malignancies will not be visualized mammographically. In the management of a palpable breast mass, a negative mammogram must not discourage biopsy of a clinically suspicious lesion. Electronically Signed By: Richard ellison/bethanie:03/02/2022 09:59:31 letter sent: Normal Exam ACR BI-RADS Category 1: Negative 3341F
== END ==
PROVIDERS: PCP Registered Nurse; Referring Provider Registered Nurse; Visit Provider Registered Nurse
DX: Z12.31 Encounter for screening mammogram for malignant neoplasm of breast (principal); Z80.3 Family history of malignant neoplasm of breast
CPT/HCPCS: 77063; 77067

== ENCOUNTER → 2022-09-09 09:26 | Outpatient (CLI) | payer MEDICARE, SELFPAY ==
[2019-03-27 13:45] VITALS: BMI 22.6
[2022-09-09 10:28] LABS: Add Manual Diff / Slide Review NO; Appearance Urine UA CLEAR; Basophils Absolute Auto 100 /uL (0-100); Bilirubin Urine UA NEGATIVE (NEGATIVE); Color Urine UA YELLOW; Eosinophils Absolute Auto 100 /uL (0-450); Eosinophils Percent Auto 1.6 % (2-4); Glucose Urine UA NEGATIVE (Negative); Hematocrit 42.5 % (36-46); Hemoglobin 14.3 g/dL (12.0-16.0); Ketones Urine UA NEGATIVE (NEGATIVE); Leukocyte Esterase Urine UA 1+ (NEGATIVE); Lymphocytes Absolute Auto 1900 /uL (1100-4500); Mean Corpuscular HGB Conc 33.7 % (30-36); Mean Corpuscular Hemoglobin 30.2 PG (26-34); Mean Corpuscular Volume 89.5 fL (80-100); Monocytes Absolute Auto 300 /uL (0-900); Monocytes Percent Auto 6.1 % (3-14); Neutrophils Absolute Auto 3000 /uL (1500-7000); Neutrophils Percent Auto 55.3 % (50-75); Nitrite Urine UA NEGATIVE (Negative); Occult Blood Urine UA NEGATIVE (Negative); Platelet Count 245 X10^3/uL (150-400); Protein Urine UA NEGATIVE (Negative); Red Blood Cell Count 4.75 X10^6/uL (4.0-5.2); Red Cell Distribution Width 13.7 % (11.6-14.8); Urobilinogen Urine UA 0.2 E.U./dL (0.2); White Blood Cell Count 5.3 X10^3/uL (4.5-11.0)
[2022-09-09 10:40] LABS: Amorphous Sediment Urine 2+; Bacteria Urine Occasional (0-1); Blood Urea Nitrogen 17 mg/dL (7-17); Calcium 9.4 mg/dL (8.4-10.2); Carbon Dioxide 33 mmol/L (22-32); Chloride 99 mmol/L (98-107); Estimated Glomerular Filt Rate > 60 mL/min (>60); Glucose 91 mg/dL (80-110); HEMOLYSIS < 15 (0-50); Potassium 4.5 mmol/L (3.4-5.1); RBC Urine None Seen (0-5/HPF); Sodium 138 mmol/L (137-145); Squamous Epithelial Cell Urine 0-1 /HPF (0-5/HPF); WBC Urine 0-1/HPF (0-5/HPF)
[2022-09-09 10:41] LABS: Culture Indicated Urine Specimen Cultured
[2022-09-10 07:47] LABS: Labcorp Hemoglobin (Hb) A1c 5.9 % (4.8-5.6)
== END ==
PROVIDERS: PCP Registered Nurse; Referring Provider Orthopaedic Surgery; Visit Provider Orthopaedic Surgery
DX: Z01.818 Encounter for other preprocedural examination (principal); R73.9 Hyperglycemia, unspecified; Z01.812 Encounter for preprocedural laboratory examination; N39.0 Urinary tract infection, site not specified
CPT/HCPCS: 36415; 80048; 81001; 83036; 85025; 87086; 93005

== ENCOUNTER 2022-11-07 11:39 | Day surgery (SDC) | payer MEDICARE, SELFPAY ==
[2019-03-27 13:45] VITALS: BMI 22.6
[2022-11-01 08:58] VITALS: BMI 24.0
[2022-11-07] VITALS (11 sets, daily range): BP systolic 107–146; BP diastolic 53–91; PULSE 54–84; RESP 13–21; TEMP 36.2–36.6; O2SAT 94–97; BMI 24.0
--- NOTE | 2022-11-07 06:34 | DI.RAD.S_ITS ---
PROCEDURE: XR HIP W PEL IF DONE RT 2V INDICATIONS: INNER OP TECHNIQUE: 2 view(s) of the hip acquired. COMPARISON: [facility], CR, XR PELVIS WITH LATERAL HIP LEFT, 09/01/2022, 16:14. [facility], CR, XR HIP W PEL IF DONE RT 2V, 03/27/2019, 11:18. FINDINGS: Bones: Patient is status post left hip arthroplasty, with hardware components in expected positions. The hip joint appears congruent. Right hip arthroplasty postsurgical changes are stable compared to the prior exam. The visualized bony structures appear intact. Soft tissues: Overlying postoperative changes are noted. No suspicious soft tissue densities. IMPRESSION: Expected postsurgical change for left hip arthroplasty. Dictated by: Rina Aiken MD, PhD on 11/07/2022 at 16:44 Approved by: Rina Aiken MD, PhD on 11/07/2022 at 16:45
[2022-11-07] MEDS: LACTATED RINGERS 1,000 ML 42 ML IV (12:03)
[2022-11-07] MEDS: CELECOXIB 200 MG CAPSULE PO (12:04)
[2022-11-07] MEDS: PREGABALIN 75 MG CAPSULE PO (12:04)
[2022-11-07] MEDS: ACETAMINOPHEN 325 MG TABLET 975 MG PO (12:04)
[2022-11-07] MEDS: VANCOMYCIN 1,000 MG/200 ML PIGGYBACK 200 MG IV (13:30)
[2022-11-07] MEDS: FAMOTIDINE 20 MG/2 ML VIAL IV (13:51)
--- NOTE | 2022-11-07 13:56 | PM.PREOP ---
Pre-operative Note Interval Note History & Physical reviewed/Exam performed by Physician: Yes Changes to H&P: No
--- NOTE | 2022-11-07 13:56 | PM.OP.1 ---
Operative Date/Time/Diagnoses Date of procedure: 11/07/22 Time of procedure: 14:00 Pre-op diagnosis: Left hip osteoarthritis Post-op diagnosis: same Procedure & Clinicians Procedure: Left total hip arthroplasty anterior approach Same procedure as scheduled: Yes Indications: The patient has had progressively worsening left hip pain with radiographic changes consistent with arthritis. Non-operative management has failed and the patient has requested total hip replacement. The risks, benefits and alternatives to surgery were discussed with the patient prior to proceeding. Risks discussed included, but were not limited to, failure to relieve pain, leg length discrepancy, dislocation, stiffness, infection, nerve damage, deep venous thrombosis, pulmonary embolism, stroke, coma, heart attack, permanent paralysis and , as well as the potential need for eventual revision of the prosthetic. Surgeon: Adele Yeung Shipping Room Helper: Tim Santos Anesthesia Type: General Operative Notes Findings: Severe left hip osteoarthritis, adequate stability, soft bone Closure Type: primary Specimen(s): none sent Prosthetic devices, grafts, tissues, transplants, or devices: Yeung and nephew size 5 anthology standard offset, 50 mm R3, neutral poly liner, 32 by -3 Oxinium femoral head. One 6.5 mm screw Estimated Blood Loss (mL): 250 Blood products transfused: none Procedure in detail: The patient was brought to the operating room. Patient was carefully positioned in the supine position. Time-out was performed and antibiotics were given. Anesthesia was induced. She was positioned in the on the table in order to allow hyperextension of the hip. The left lower extremity was prepped and draped in a standard sterile fashion. An anterior left hip incision was made 1 fingerbreadth lateral to the anterior superior iliac spine and extended distally towards the greater trochanter. Dissection was carried out through skin and subcutaneous tissues. Superficial hemostasis was achieved. The fascia over the tensor fascia felicita was defined and incised with a knife. Two Allis clamps were used to grasp the fascia. Tensor fascia felicita was retracted laterally. A gelpi retractor was placed. Dissection was carried out down along the neck. The circumflex vessels were carefully identified and cauterized with the Aqua Mantis. A PA was used throughout the procedure and was critical for successful implantation of the components. They were used for retraction, establishing adequate hemostasis and adequate visualization in order to implantation of the components. There was good visualization of the femoral neck. A Cobra was placed superior to the neck and the gluteus fibers were carefully stripped from that superior aspect of the capsule. A 2nd retractor was placed along the inferior aspect of the neck. The rectus insertion along the capsule was partially released. A 3rd retractor that was then gently placed over the rim of the acetabulum under the rectus. Capsule was carefully incised and released from the intertrochanteric line circumferentially superior to the mid sagittal line and inferiorly to the mid sagittal line until the lesser trochanter was palpable. A tag stitch was placed both in the superior and inferior limb of the capsular insertion. Along the acetabulum capsule was also released up to the mid sagittal 12:00 position. A portion of the labrum was resected. A saw was used to perform an osteotomy at the level of the intertrochanteric line and the junction of the superior femoral neck leaving approximately 1 finger breath of residual inferior neck above the lesser trochanter. A 2nd cut was made along the femoral neck at the base of the head and a napkin ring of neck was removed. Corkscrew was placed in the femoral head and the head was removed without difficulty. Retractors were then repositioned around the acetabulum. Residual labrum was resected and additional osteophytes were removed. A reamer that was 4 mm below the templated size was placed by hand in the acetabulum and it was reamed to centralize the acetabulum. It was then reamed up to 2 under the templated size and fluoroscopy was brought in to confirm the position of the reaming and depth of reaming. I reamed 1 under the anticipated size. A trial cup was placed and noted that it was appropriately sized and fluoroscopy confirmed position and depth. The component was open and inserted without difficulty fluoroscopic imaging was used to confirm that the cup had been adequately seated and was well positioned. It was further stabilized with a single screw. Neutral poly liner was placed. The cup was tested and noted to be stable. Attention was then directed to the femur. The femur was gently hyperextended additional capsular release was performed as needed in order to allow adequate visualization of the proximal femur with elevation of the femur. Patient was placed in a hyperextended slightly adducted position with maximum external rotation. Box osteotome was used to check for any residual neck as well as sclerotic bone along the trochanter. [place] pepper was placed in the femur. Additional broaching was performed. Canal finder was used to determine the alignment of the canal and position. Size 1 broach was placed. The canal was then appropriately broached up to the templated size as long as there was adequate stability of the broach and serial advancement of the broach without excessive impingement. Specific attention was directed at avoiding varus attempting to direct the distal aspect of the broach more anteriorly and avoiding excessive anteversion. Trial reduction showed acceptable range of motion, good stability, no posterior impingement, buddhist of leg length and appropriate lateral shuck. I also hyperflexed the hip and checked that there was no impingement anteriorly and there was good stability with flexion, adduction and internal rotation. Marcaine and Exparel were injected.. The stem was placed without difficulty. Repeat trial reduction and x-ray showed acceptable overall position, length, and no evidence of the femoral fracture. Final head was placed. Wound was meticulously irrigated with normal saline. The hip was reduced and additional Exparel and Marcaine were injected. The capsule was closed with interrupted nonabsorbable sutures. The fascia of the tensor was closed with interrupted and running Vicryl. No drain was placed. Any tensor fascia felicita muscle that appeared to be contused or injured which was a minimal amount was carefully resected. Capsule around the tensor was injected with Exparel and Marcaine. The skin was closed with barbed stitches for the subcutaneous tissue and skin. We also used surgical glue. The wound was dressed sterilely. Brief Betadine soak was also used and was meticulously irrigated with normal saline. Patient was transferred to recovery room in satisfactory condition. Complications: none Post-operative Condition: stable Disposition: Acute Care Plan for aftercare: The patient will be maintained on a standard total hip replacement protocol with weight bearing as tolerated and anterior hip precautions. The patient will receive Aspirin and sequential compression devices for DVT prophylaxis. The patient will be discharged home when safe for the home environment.
[2022-11-07] MEDS: CEFAZOLIN 2 GM/100 ML PREMIX 100 ML IV ×2 (14:29→23:27)
--- NOTE | 2022-11-07 15:03 | SUR.OPER ---
Supine on padded [place] table with bilateral legs secured in padded positioning boots and suspended in positioning spars, operative leg in traction per surgeon. Head on one pillow. Arm on non-operative side secured on padded armboard <90 degrees abduction. Arm on operative side padded and resting across chest then secured with tape over sheet. Padded perineal post in place per surgeon.
[2022-11-07] MEDS: BUPIVACAINE 0.25% (PF) 60 ML, EPINEPHrine 0.3 MG INJ (15:42)
[2022-11-07] MEDS: TRANEXAMIC ACID 1,000 MG VIAL 1000 MG INJ ×2 (15:43→16:30)
[2022-11-07] MEDS: BUPIVACAINE LIPOSOME 266 MG/20 ML VIAL INJ (16:29)
--- NOTE | 2022-11-07 17:00 | DI.RAD.S_ITS ---
PROCEDURE: XR HIP W PEL IF DONE LT 2V INDICATIONS: POST OP LEFT HIP TECHNIQUE: AP pelvis and lateral view of the left hip acquired. COMPARISON: [facility], [place], XR HIP W PEL IF DONE RT 2V, 11/07/2022, 15:37. [facility], [place], XR HIP W PEL IF DONE RT 2V, 03/27/2019, 11:18. FINDINGS: Bones: Patient is status post last hip arthroplasty, with hardware components in expected positions. The hip joint appears congruent. The visualized bony structures appear intact. Visualized prior right hip arthroplasty appears unremarkable. Soft tissues: Overlying postoperative changes are noted. No suspicious soft tissue densities. IMPRESSION: Postoperative changes from left hip arthroplasty. Dictated by: Lam Erwin M.D. on 11/08/2022 at 11:57 Approved by: Lam Erwin M.D. on 11/08/2022 at 12:00
[2022-11-07] MEDS: LACTATED RINGERS 1,000 ML 100 ML IV (18:06)
[2022-11-07] MEDS: ACETAMINOPHEN 325 MG TABLET 650 MG PO (19:00)
[2022-11-07] MEDS: IBUPROFEN 400 MG TABLET PO (19:00)
[2022-11-07] MEDS: ASPIRIN EC 81 MG TABLET PO (20:31)
[2022-11-07] MEDS: DOCUSATE 100 MG CAPSULE PO (20:31)
[2022-11-07] MEDS: NAPROXEN 250 MG TABLET PO (20:31)
[2022-11-08 01:40] VITALS: BP 101/47; PULSE 62; RESP 18; TEMP 36.1; O2SAT 95
[2022-11-08] MEDS: OXYCODONE IR 5 MG TABLET PO ×2 (04:35→08:34)
[2022-11-08] MEDS: ACETAMINOPHEN 325 MG TABLET 650 MG PO ×2 (04:36→11:32)
[2022-11-08] MEDS: IBUPROFEN 400 MG TABLET PO ×2 (04:36→11:33)
[2022-11-08 04:43] VITALS: BP 112/54; PULSE 72; RESP 18; TEMP 36; O2SAT 94
[2022-11-08] MEDS: CEFAZOLIN 2 GM/100 ML PREMIX 100 ML IV (06:36)
[2022-11-08 06:50] LABS: Hematocrit 36.7 % (36-46); Hemoglobin 12.4 g/dL (12.0-16.0)
--- NOTE | 2022-11-08 08:14 | P.DS_ITS ---
History of Present Illness History of Present Illness Date Patient Seen: 11/08/22 Time Patient Seen: 08:14 Chief complaint: OPB Narrative: Operative Date/Time/Diagnoses Date of procedure: 11/07/22 Time of procedure: 11:10 Pre-op diagnosis: Severe left hip osteoarthritis Post-op diagnosis: same Procedure & Clinicians Procedure: Left total hip arthroplasty posterior approach Same procedure as scheduled: Yes Indications: The patient has had progressively worsening left hip pain with radiographic changes consistent with arthritis. Non-operative management has failed and the patient has requested total hip replacement. The risks, benefits and alternatives to surgery were discussed with the patient prior to proceeding. Ris ks discussed included, but were not limited to, failure to relieve pain, leg length discrepancy, dislocation, stiffness, infection, nerve damage, deep venous thrombosis, pulmonary embolism, stroke, coma, heart attack, permanent paralysis and , as well as the potential need for eventual revision of the prosthetic. Surgeon: Adele Yeung Removable Prosthodontist: Tim Santos Anesthesia Type: General and Spinal Operative Notes Findings: Severe right hip osteoarthritis acceptable alignment, acceptable stability, hard bone Closure Type: primary Specimen(s): none sent Prosthetic devices, grafts, tissues, transplants, or devices: Yeung and Nephew 56 mm R3, polar stem size 4, 36+ 0 cobalt chrome, neutral poly liner, two 6.5 mm screws Estimated Blood Loss (mL): 250 Blood products transfused: none Discharge Providers Provider Discharge Date: 11/08/22 Primary care physician: Juma Ramos ND Consults: 11/07/22 06:34 Consult to Anesthesiology Routine Comment: Consulting Provider: Anesthesiologist Reason for consultation: Regional block for post operative pain control 11/07/22 17:52 Consult to Discharge Planning Routine Comment: Consult to Occupational Therapy Evaluate & Treat Comment: Physician Instructions: Evaluate and treat Consult to Physical Therapy Evaluate & Treat Comment: Physician Instructions: post op FERNANDO protocol Discharge provider: Malathi Cervantes PA-C Summary Hospital Course Discharge Diagnosis: Left hip osteoarthritis, s/p left total hip arthroplasty Hospital Course: Ms Valdez's hospital course was unremarkable. On the morning of POD# 1, she was feeling well and wanted to go home. She was eating and voiding without difficulty and her pain was well-controlled with oral medication. She had not yet been evaluated by PT. Exam Vital Signs (past 8 hours): - 11/08/22 01:40 11/08/22 04:43 Temperature 97.0 F L 96.8 F L Pulse Rate 62 72 Respiratory Rate 18 18 Blood Pressure 101/47 L 112/54 L Pulse Oximetry 95 94 Oxygen Flow Rate 0 0 Oxygen Delivery Method Room Air Oxygen Flow Rate 0 Narrative Exam Narrative: 5/5 strength in hip flexors, quadriceps, hamstrings, DF, PF, EHL on left. Sensation to light touch intact throughout LLE. Calf soft, compressible, nontender and without palpable cords or masses. Aquacel dressing CDI. Objective Labs 11/08/22 06:14 Labs: Laboratory Results - last 24 hr 11/08/22 06:14 Hgb 12.4 Hct 36.7 PFSH Medical History (Updated 11/01/22 @ 09:10 by Adry Alas RN) Arthritis GERD with esophagitis History of Mohs micrographic surgery for skin cancer (02/2021) Hypoglycemia Insomnia Osteoarthritis Seasonal allergies Surgical History (Updated 11/01/22 @ 09:10 by Adry Alas RN) History of bunionectomy of both great toes 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) Hx of bilateral cataract extraction (2020) Hx of hand surgery Hx of oral surgery (~06/2018) Hx of tooth extraction (11/2021) Social History household members: spouse Smoking Status: Never smoker alcohol intake: current Discharge Assessment & Plan Assessment and Plan Assessment: Left hip osteoarthritis, s/p left total hip arthroplasty Plan of Treatment: Discharge home after PT if PT agrees. Pt has all post-op meds at home. Multimodal pain control, ASA 81 mg BID x 6 weeks for VTE prophlaxis. Outpt PT, f/u in office in 2 weeks as scheduled. Discharge Plan Discharge Plan Patient Disposition: Home Discharge orders & Medications Discharge Orders: Discharge (Order); Ordered 11/08/22 Ordered By: Malathi Cervantes Prescriptions: Continued fluticasone propionate [Flonase Allergy Relief] 50 mcg/actuation [place],Suspension 2 spray INTRANASAL DAILY PRN (Reason: Seasonal allergies) naproxen sodium [Aleve] 220 mg Capsule 220 mg PO BID famotidine [Pepcid] 20 mg Tablet 20 mg PO DAILY multivitamin Tablet 1 tab PO DAILY loratadine [Claritin] 10 mg Tablet 10 mg PO DAILY Follow up/Referrals: Juma Ramos ARNP [Primary Care Provider] - Adele Yeung MD [Physician] - As previously scheduled (Follow up w/ Malathi Cervantes PA-C, on 11/17/2022 @ 3:30 pm at [facility] Diet/Activity/Treatments Diet: Diet as Tolerated Activity: Weightbearing as tolerated to left leg. Anterior hip precautions. Cold/Heat Therapy: Ice to hip as needed for pain. Skin/Wound/Dressing Care Report to your healthcare provider any signs of infection, such as:: chills, fever, night sweats, unusual drainage and unusual redness Dressing: May shower. Leave dressing in place until follow up in office. No bathing or otherwise soaking incision. Call the office if the dressing becomes saturated inside. Visit Report/Discharge Packet Instructions: DI for Hip Replacement Stand Alone Forms: Patient Portal/API, Surgery Discharge Discharge Data Primary Care Provider: Juma Ramos Attending Provider: Adele Yeung
[2022-11-08] MEDS: MULTIVITAMIN 1 TABLET 1 TAB PO (08:32)
[2022-11-08] MEDS: DOCUSATE 100 MG CAPSULE PO (08:32)
[2022-11-08] MEDS: NAPROXEN 250 MG TABLET PO (08:32)
[2022-11-08] MEDS: ASPIRIN EC 81 MG TABLET PO (08:33)
[2022-11-08 08:39] VITALS: BP 120/79; PULSE 68; RESP 20; TEMP 36.5; O2SAT 98
--- NOTE | 2022-11-08 09:12 | OT.IP.EVAL ---
Current Diagnoses Unilateral primary osteoarthritis, left hip (11/07/22) Surgery Performed Operation Date: 11/07/22 13:45 Actual Procedures p Total Hip Arthroplasty/Anterior Approach(Left) - Adele Yeung MD Past Medical History (Last Updated 11/01/22 @ 09:10 by Adry Alas, RN) Arthritis GERD with esophagitis History of Mohs micrographic surgery for skin cancer (02/2021) Hypoglycemia Insomnia Osteoarthritis Seasonal allergies Surgical History (Last Updated 11/01/22 @ 09:10 by Adry Alas RN) History of bunionectomy of both great toes 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) Hx of bilateral cataract extraction (2020) Hx of hand surgery Hx of oral surgery (~06/2018) Hx of tooth extraction (11/2021) Occupational Therapy Inpatient Evaluation/Re-Eval M1 PT/OT-IP Prior Functional Status Start: 11/08/22 11:59 Freq: NEEDED Status: Active Protocol: Document 11/08/22 08:48 [facility] (Rec: 11/08/22 12:14 [facility] [id number]) Medical Review Prior Functional Status Communication Independent Mobility and Gait Independent but only could walk a 2 blockc due to pain. Activities of Daily Living and IADL's Had pain and limited with IADL needs. Social History Household Members spouse Living Arrangements House Number of Floors (Floors) One Floor Number of Stairs To Enter/Railing? no steps to get in Home Environment High Toilet,Walk in Shower Home Equipment Front Wheel Walker,Straight Cane,Shower Seat with Backrest ,Hand Held Shower,Geophysical E Logger Additional Social History Comment Pt has a shower bench M2 OT-IP Current Condition Start: 11/08/22 11:59 Freq: Status: Active Protocol: Document 11/08/22 08:48 [facility] (Rec: 11/08/22 12:14 [facility] [id number]) Occupational Therapy Current Condition Current Condition Evaluation Date 11/08/22 Treatment Diagnosis S/p L FERNANDO anterior approach Diagnosis Onset Date 11/07/22 Post Operative Precautions Anterior Hip Precautions No Hip Extension,No Hip External Rotation M3 OT- IP Subjective and Pain Start: 11/08/22 11:59 Freq: Status: Active Protocol: Document 11/08/22 08:48 [facility] (Rec: 11/08/22 12:14 [facility] [id number]) OT- Subjective Occupational Therapy Visit Type Type Initial Evaluation Visit Start Time 08:48 Visit Stop Time 09:12 Total Visit Minutes 24 Occupational Therapy Visit Comments Patient Comments Pt agreed to do OT eval and pt present at the end of the session. Patient/Caregiver Goals To go home. OT Pain Assessment Pain When Pain Assessed At Rest Pain Present Pain Present Pain Reported Location right hip Intensity 2 Scale Used Numeric (0 - 10) M4 OT- IP ADL's Start: 11/08/22 11:59 Freq: Status: Active Protocol: Document 11/08/22 08:48 [facility] (Rec: 11/08/22 12:14 [facility] [id number]) OT [id number]-[id number] General Evaluation Self-Feeding Ability Independent OT ADL-Grooming General Evaluation Grooming Ability Independent Areas Needing Assistance Retrieving/Set-up of Grooming Items OT ADL-Oral Care General Eval Oral Care Ability Independent Areas of Assistance Retrieving/Set-Up of Items OT ADL-Dressing Comments OT Dressing Comments Pt not wanting to get dressed at this time. Able to educated pt to dress her LLE first and take out last and to be sure to not externally rotate her LLE especially when donning socks or clothing over her leg . Pt states her to help with socks or consider getting a sock aid. OT ADL-Toileting Comments OT Toileting Comments Pt able to comfortable reach to wipe appropriately. OT ADL-Bathing Comments OT Bathing Comments Not performed. M5 OT- IP IADL's Start: 11/08/22 11:59 Freq: Status: Active Protocol: Document 11/08/22 08:48 [facility] (Rec: 11/08/22 12:14 [facility] [id number]) OT-Instrumental Activities of Daily Living Deficits IADL Deficits Identified Deficits Home Safety Awareness Awareness of Need for Assistance at Home Good Awareness Ability to Problem Solve Emergency Able to Problem Solve Situations Home Safety Comments Pt has a supportive to be able to assist pt her needs as needed. M6 OT- IP Functional Cognition Start: 11/08/22 11:59 Freq: Status: Active Protocol: Document 11/08/22 08:48 [facility] (Rec: 11/08/22 12:14 [facility] [id number]) Cognitive Factors Limiting Selfcare Function Cognitive Ability Level of Alertness Alert Patient Orientation Name,Age,Birthday,Month,Date, Year,Day of Week,Place, Situation Attention Span Ability Capable of Focused Attention, Capable of Sustained Attention Ability to Follow Commands Able to Follow One Step Commands Safety Awareness Decreased Ability to Apply Precautions Cognitive Comments Cognitive Assessment Comments Pt needing cues to incorporate her hip precautions during mobilization and ADl needs. Cue to step with her LLE first and back up with the RLE first during use of FWW and to take baby steps while turning . OT- Vision and Hearing OT- Hearing Assessment OT- Hearing Assessment WFL OT- Vision Assessment Visual Acuity Glasses For Reading M7 OT- IP Mobility and Balance Start: 11/08/22 11:59 Freq: Status: Active Protocol: Document 11/08/22 08:48 [facility] (Rec: 11/08/22 12:14 [facility] [id number]) OT-Transfer Assessment Sit to and From Stand Sit to and from Stand Standby Assistance Transfers Transfer Ability Standby Assistance Comments Mobility Comments Educated pt that it is okay to put weight on her LLE or if pt having pain to have LLE slightly in front of her RLE to when coming to stand using RLE more. Pt SBA with FWW and mainly just needing cues to incorporate her hip precautions . M9 OT- IP Assessment and Plan Start: 11/08/22 11:59 Freq: Status: Active Protocol: Document 11/08/22 08:48 [facility] (Rec: 11/08/22 12:14 [facility] [id number]) OT Summary Assessment and Plan Potential Rehabilitation Potential Excellent Analytic Complexity at Evaluation Low Summary OT Impairments Pain,Functional Mobility, Dressing,Toileting,Bathing, Toilet Transfers,Shower Transfers Progress Towards Goals Progressing Toward Goals Assessment Summary Pt LOW complexity and doing well and just needing reminders how to incorporate her anterior precautions during ADl and mobility needs. Pt would benefit from a sock aid. Pt has a supportive with good understanding to be able to safely assist pt for all needs . Pt to go home with to assist and outpt PT. Goals Dressing Goal Independent Toileting Goal Independent Bathing Goal Independent Toilet Transfer Goal Independent Shower Transfer Goal Independent Patient/Caregiver Education Goal Demonstrate Post-Op Precautions Days to Meet Goals 3 Treatment Plan OT Treatment Plan ADL Training,Functional Mobility,Patient/Family Education,Discharge Planning Discharge Recommendations OT Discharge Recommendations Home with Assistance, Outpatient PT Home Equipment Needs sock aid
--- NOTE | 2022-11-08 11:14 | CM.DANOTE ---
DCP: Patient is a 76yo F here for elective left FERNANDO performed by Dr. Yeung on 11-07. Payer: [employer] [facility] and self pay RETURN TO VENDOR reviewed EMR. RETURN TO VENDOR entered room and introduced self and role. Patient appeared A/Ox4 and was sitting up in bed finishing breakfast. Patient was accompanied by spouse, Senthil Valdez ([phone]). Patient reported feeling good this morning. Patient reported that she drives at baseline and spouse was going to drive her home upon d/c. Patient reports that she is independent with ADLs but they have been getting slower recently due to pain. Patient reports that she is waiting to be seen by OT and she was told if she is cleared she can go home after. Patient's spouse reported that he's excited to get to take care of her. 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 Patient reported that the staff here has been wonderful to her and gave her three names of staff she enjoyed working with, Fredy, Vita and Anatoliy. RETURN TO VENDOR encouraged patient to write that in the survey she would be getting in the mail within the next few weeks. RETURN TO VENDOR told charge nurse about the feedback and she stated she would pass that along. Plan: Anticipate d/c home today after seen by therapy. Patient plans to do outpatient therapy follow up. CM Team will continue to follow closely as needed. ANASTACIO De La Rosa Discharge Planning/Care Management CM Discharge Assessment Start: 11/08/22 11:13 Freq: Status: Active Protocol: Document 11/08/22 11:13 (Rec: 11/08/22 11:14 [id number]) Discharge Planning Assessment Assigned Networking Administrator ANASTACIO De La Rosa DPOA/Assigned Designee Name Senthil Celeste () Contact Information [phone] Advance Directives? Yes Advance Directives on File No History Provided By Patient,Family Member,Medical Record Prior Living Arrangements House Household Members spouse Type of transporation used prior to Drives own vehicle admit Independent with ADL's Yes Is patient alert and oriented? Yes Comment patient reports that prior to surgery she's been getting slower and slower with completing her ADLs due to pain. Patient/Family Preference OP PT Therapy Comment Pending clearance from therapy team s/p hip surgery Discharge Plan Home Transportation Arrangement Family Referrals Initiated None needed Additional Comment Pending therapy reji, pt wants to return home Whiteboard Updated in Patient Room with Yes name and ext. # of Networking Administrator Review Status In Process Next Review Type Continued Stay Review Pre-Anesthesia Assessment Start: 11/01/22 08:57 Freq: Status: Complete Protocol: Document 11/01/22 08:58 CAB (Rec: 11/01/22 09:28 CAB [id number]) Pre-Anesthesia Assessment Patient Information Reviewed Via Phone Assessment Assessment Completed With Patient Diagnostic Results BMP/CMP,CBC,EKG,Urinalysis Comment Labs/EKG @ 09/09/22 Primary Care Provider Juma Ramos Seen Specialist in Last 12 Months Yes Specialist Seen Maths Tutor,Orthopedist Primary Language [place] Preferred Language [place] Height 162.56 cm Weight 63.503 kg Body Mass Index (BMI) 24.0 Hearing Ability Normal Visual Assist Glasses Dentition Type Teeth, Natural Present,Teeth, Missing,Dental Implants Barriers to Learning None Hx Anesthesia Reactions No Hx Family Anesthesia Reaction No Hx Malignant Hyperthermia No Hx Blood Transfusions No Anesthesia Review Requested No 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 No Does patient have RUBI/SOB No Hx Sleep Apnea No CPAP/BIPAP use not prescribed Currently Taking a Beta Joanne No Can You Climb a Flight of Stairs Without No: Feels r/t leg pain SOB Hx Chest Pain No Hx SOB No Hx Syncope or Dizziness No Anti-Coagulant Therapy No Has a Weigher Operator No Cardiac Testing No Hx Pacemaker/ICD No Pacemaker Rep Required? No Cardiac Clearance Received Not Applicable Diet Type At Home Regular Dysphagia No Gastrointestinal Symptoms Reflux Chronic UTI No Bladder Pattern Frequency,Nocturia Urinary Catheter Present No Hx Urinary Self Catheterization No Diabetes No HgbA1C 5.9 Date 09/09/22 Patient No Lactating No Hx Drug Resistant Organism No Presence of External or Internal Medical Yes: pins, plate in both feet, Devices right hip prosthesis Received a COVID vaccine? Yes Received all doses? Yes Marital Status Lives With spouse Current Living Arrangements House Number of Floors (Floors) One Floor Support System Spouse Patient Discharge Plan Description Return Home Comment Pt advised possible same day surgery per surgeon based on PT after surgery Feels Safe in Current Environment Yes Been Physically Hurt or Threatened By a No Person in Current Environment Do you have thoughts of harming yourself None or others? Are you currently considering suicide? No Do you have a plan to hurt yourself or No Plan others? Do You Have Any Spiritual Beliefs That No May Affect Your HC Choices? Do You Have Any Cultural Practices That No May Affect Your HC Choices? Who Can We Speak to About Patient's Care Family, friends Identifying Code for Release of Patient Declines to issue Information Health Care Proxy/Next of Kin Senthil () Health Care Proxy Emergency Contact Name Senthil () Emergency Contact Advance Directives? Yes Advance Directives on File No Requested Patient Bring Advanced Yes Directives DOS Power of Dye Box Operator No PAC Instructions Do not shave/clip surgical site,Durable medical equipment ,Medications to take/avoid, Nasal antibiotic,No ETOH/ petroleum product on skin DOS, NPO,Post-op transportation,Pre -surgical wash,Sturdy shoes/ comfortable clothes,Do not bring valuables and remove jewelry
--- NOTE | 2022-11-08 12:09 | PT.IIE ---
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) Hx of bilateral cataract extraction (2020) Hx of hand surgery Hx of oral surgery (~06/2018) Hx of tooth extraction (11/2021) Medical History (Last Updated 11/01/22 @ 09:10 by Adry Alas, RN) Arthritis GERD with esophagitis History of Mohs micrographic surgery for skin cancer (02/2021) Hypoglycemia Insomnia Osteoarthritis Seasonal allergies Physical Therapy Inpatient Evaluation/Re-Eval M1 PT/OT-IP Prior Functional Status Start: 11/08/22 11:59 Freq: NEEDED Status: Active Protocol: Document 11/08/22 11:59 ES (Rec: 11/08/22 12:09 ES [id number]) Medical Review Prior Functional Status Medical History Reviewed Yes Diet/Fluid Consistency Regular Communication Indep Mobility and Gait Indep Activities of Daily Living and IADL's Indep Prior Functional Level (Other details) Able to drive Social History Household Members spouse Living Arrangements House Number of Floors (Floors) One Floor Number of Stairs To Enter/Railing? No stairs to enter. Has a curb and 4 stairs with wide rails to get into OP PT office if there is no parking near the ramp. Home Equipment Front Wheel Walker,Straight Cane M2 PT-IP Current Condition Start: 11/08/22 11:59 Freq: NEEDED Status: Active Protocol: Document 11/08/22 11:59 ES (Rec: 11/08/22 12:09 ES [id number]) Physical Therapy Current Condition Current Condition Evaluation Date 11/08/22 Treatment Diagnosis S/p L anterior FERNANDO Onset Date 11/07/22 M3 PT-IP Subjective Start: 11/08/22 11:59 Freq: NEEDED Status: Active Protocol: Document 11/08/22 11:59 ES (Rec: 11/08/22 12:09 ES [id number]) Subjective Physical Therapy Visit Type Type Initial Evaluation Visit Start Time 10:23 Visit Stop Time 01:50 Total Visit Minutes 27 Physical Therapy Visit Comments Patient Comments Patient alert, up in chair, present. Agreeable to work with PT. Therapy Pain Assessment Pain When Pain Assessed At Rest Pain Present Pain Present Denied Pain M4 PT-IP Mobility and Gait Start: 11/08/22 11:59 Freq: NEEDED Status: Active Protocol: Document 11/08/22 11:59 ES (Rec: 11/08/22 12:09 ES [id number]) PT-Bed Mobility Assessment Supine to Sit Supine to Sit Minimal Assistance Sit to Supine Sit to Supine Minimal Assistance Scooting Scooting to Edge of Bed Independent Scooting Up and Down in Bed Independent PT-Transfer Assessment Sit to and From Stand Sit to and from Stand Independent,Use of Upper Extremities Equipment Transfer Assistive Device Gait Belt,Front Wheeled Walker Transfers Transfer Destination Bed,Chair Transfer Technique Ambulation Transfer Ability Level of Assist Independent,Use of Upper Extremities Comments Mobility Comments Min A for lifting LLE in/out of bed; spouse able to demonstrate assisting patient with this. Gait Assessment Gait Gait Assistance Required: Independent Distance (Feet) 150 Assistive Devices Assistive Device Gait Belt,Front Wheeled Walker Gait Deviations General Gait Pattern Decreased Stride Length Factors Limiting Gait Function Factors Limiting Gait Function Limited Range of Motion Comments Gait Comments Patient initially ambulated with step-to pattern, leading with LLE. She was instructed to perform step-through with small stride with cueing for increased heel-toe pattern and L knee flexion to be able to maintain anterior hip precautions. She was able to demonstrate this the rest of treatment without extending L hip past neutral. Stair Climbing Assessment Evaluation Level of Assist On Stairs Independent,Contact Guard Assistance Devices Stair Climbing Assistive Devices Front Wheel Walker,Right Railing Technique/Endurance Stair Climbing Direction Ascend and Descend Stair Climbing Technique Step to Step Number of Steps Climbed 4 Query Text: Comments Stair Climbing Comments Performed step up/down from platform to simulate curb using FWW indep. Performed 3 stairs with single rail on R side and WOOD ROUTER to simulate going into PT office. Instructed patient and to have bring FWW up/down. PT-Balance Assessment Sitting Balance and Reactions Static Sitting Balance Ability Good Dynamic Sitting Balance Ability Good Standing Balance and Reactions Static Standing Balance Ability Good Dynamic Standing Balance Ability Good Device Used FWW M5 PT-IP Objective Assessments Start: 11/08/22 11:59 Freq: NEEDED Status: Active Protocol: Document 11/08/22 11:59 ES (Rec: 11/08/22 12:09 ES [id number]) Orientation Orientation/Cognition Level of Alertness Alert Orientation Name,Age,Birthday,Month,Date, Year,Day of Week,Place, Situation Language Function Ability No Deficits Noted Safety Awareness Understands Safety Issues Memory Description No Deficits Noted Gross Range of Motion Upper Extremity ROM Assessment Within Functional Limits Lower Extremity ROM Assessment Left Impaired Impairments 2/2 hip precautions Strength Upper Extremity Strength Assessment Within Functional Limits Lower Extremity Strength Assessment Left Impaired Comments Strength Comments L hip impaired 2/2 surgery, required assist for heel slide /hip flexion in supine and for lifting leg in/out of bed. Coordination Assessment Gross Coordination Gross Coordination WNL Sensation Assessment Sensation Gross Sensation WNL M6 PT-IP Treatment Start: 11/08/22 11:59 Freq: NEEDED Status: Active Protocol: Document 11/08/22 11:59 ES (Rec: 11/08/22 12:09 ES [id number]) Physical Therapy Treatment Exercises Exercises Ankle Pumps,Gluteal Sets,Quad Sets,Heel Slides Education Education Provided Precautions,Weight Bearing Status,Post-Op Packet,Safety M7 PT-IP Assessment and Plan Start: 11/08/22 11:59 Freq: NEEDED Status: Active Protocol: Document 11/08/22 11:59 ES (Rec: 11/08/22 12:09 ES [id number]) PT Summary Assessment and Plan Potential Rehabilitation Potential Excellent Status of Condition at Evaluation Stable Summary Impairments Pain,ROM,Strength,Bed Mobility ,Gait Assessment Summary Patient is a 76 year old female POD #1 s/p L anterior FERNANDO. She and her spouse demonstrated ability to perform all mobility tasks safely with FWW. She was able to ambulate household distances and go up/down stairs to be able to get to her PT appts. She tolerated all tasks with minimal pain. She demonstrated good understanding of HEP and hip precautions. She is safe to d/ c home with spouse's assistance. Frequency of Treatment Frequency Of Treatment Discharge Precautions Anterior Hip Precautions No Hip Extension,No Hip External Rotation Weight Bearing Status Weight Bearing Status Weight Bear as Tolerated Discharge Recommendations PT Discharge Recommendations Home with Assistance, Outpatient PT Transportation Needs at Discharge Private Vehicle
--- NOTE | 2022-11-08 12:43 | PC.NURSE ---
Pt is A&OX4, VSS, afebrile on RA. She reports pain well controlled with medications. Aquacel dressing c/d/i. She denies ramírez numbness or tingling to LLE. She is cleared by OT and PT for discharge home today with who is supportive at the bedside. She verbalizes understanding of medications, site care,activity limitations as well as s/sx of infection/complication and follow up appointment post operatively. She is escorted via w/ch to private vehicle with her for discharge home this a.m. at approximately 1130. She has her FWW and all of her personal belongings with her.
== END 2022-11-08 11:32 | disposition home or self-care (01) ==
LOC: OR 11:40 → AC 11:42
PROVIDERS: PCP Registered Nurse; Referring Provider Orthopaedic Surgery; Visit Provider Orthopaedic Surgery
PROC: (CPT 27130; principal; 2022-11-07 13:45)
DX: M16.12 Unilateral primary osteoarthritis, left hip (principal)
CPT/HCPCS: 27130; 36415; 73502; 76000; 85014; 85018; 97161; 97165; 97535; C1776; C9290; J0171; J0690; J1100; J2405; J2704; J3010

== ENCOUNTER 2022-12-09 09:28 | Emergency (ER) | payer MEDICARE, SELFPAY ==
[2022-11-07 11:46] VITALS: BMI 24.0
[2022-12-09] VITALS (19 sets, daily range): BP systolic 122–196; BP diastolic 58–96; PULSE 63–79; RESP 11–23; TEMP 36.6; O2SAT 92–99; BMI 24.0
--- NOTE | 2022-12-09 09:38 | DI.RAD.S_ITS ---
PROCEDURE: XR CHEST 1V INDICATIONS: chest pain TECHNIQUE: One view of the chest was acquired. COMPARISON: [facility], , CHEST 2 VIEW, 05/26/2015, 14:16. FINDINGS: Surgical changes and devices: None. Lungs and pleura: Lungs are clear. No pleural effusions or pneumothorax. Mediastinum: Mediastinal contours appear normal. Heart size is normal. Bones and chest wall: No suspicious bony lesions. Overlying soft tissues appear unremarkable. IMPRESSION: No acute cardiopulmonary abnormality. Dictated by: Jasmeet Landry M.D. on 12/09/2022 at 9:53 Approved by: Jasmeet Landry M.D. on 12/09/2022 at 9:54
--- NOTE | 2022-12-09 09:44 | DI.RAD.S_ITS ---
PROCEDURE: XR HIP W PEL IF DONE LT 2V INDICATIONS: recent left hip replacment, fall onto left hip and hand TECHNIQUE: AP pelvis with lateral view(s) of the 3 hip(s). COMPARISON: [facility], , XR HIP W PEL IF DONE LT 2V, 11/07/2022, 17:00. FINDINGS: Bones: No fractures or dislocations. Pelvic ring appears intact. No suspicious bony lesions. Bilateral hip replacements are seen. No perihardware lucency. Soft tissues: The visualized bowel gas pattern is normal. No suspicious soft tissue calcifications. IMPRESSION: No acute traumatic abnormality of the pelvis or left hip. Status post bilateral hip replacement without complication. Dictated by: Jasmeet Landry M.D. on 12/09/2022 at 9:51 Approved by: Jasmeet Landry M.D. on 12/09/2022 at 9:53
--- NOTE | 2022-12-09 09:44 | DI.RAD.S_ITS ---
PROCEDURE: XR HAND LT MIN 3V INDICATIONS: recent left hip replacment, fall onto left hip and hand TECHNIQUE: 3 views of the hand(s) acquired. COMPARISON: None. FINDINGS: Bones: No fractures or dislocations. Carpal bones are normally aligned. No suspicious bony lesions. The distal interphalangeal joints demonstrate joint space narrowing and osteophytes. The thumb interphalangeal joint demonstrates joint space narrowing and osteophytes. The 1st carpometacarpal joint and triscaphe joint have joint space narrowing and subchondral sclerosis. Soft tissues: No suspicious soft tissue calcifications. IMPRESSION: Degenerative changes consistent with osteoarthritis. Dictated by: Jasmeet Landry M.D. on 12/09/2022 at 10:12 Approved by: Jasmeet Landry M.D. on 12/09/2022 at 10:14
[2022-12-09 09:56] LABS: Add Manual Diff / Slide Review NO; Basophils Absolute Auto 100 /uL (0-100); Eosinophils Absolute Auto 100 /uL (0-450); Eosinophils Percent Auto 2.1 % (2-4); Hematocrit 38.5 % (36-46); Hemoglobin 13.2 g/dL (12.0-16.0); Lymphocytes Absolute Auto 1400 /uL (1100-4500); Lymphocytes Percent Auto 22.4 % (25-40); Mean Corpuscular HGB Conc 34.3 % (30-36); Mean Corpuscular Hemoglobin 30.2 PG (26-34); Mean Corpuscular Volume 88.2 fL (80-100); Monocytes Absolute Auto 400 /uL (0-900); Monocytes Percent Auto 6.2 % (3-14); Neutrophils Absolute Auto 4300 /uL (1500-7000); Neutrophils Percent Auto 68.3 % (50-75); Platelet Count 295 X10^3/uL (150-400); Red Blood Cell Count 4.36 X10^6/uL (4.0-5.2); Red Cell Distribution Width 13.4 % (11.6-14.8); White Blood Cell Count 6.3 X10^3/uL (4.5-11.0)
--- NOTE | 2022-12-09 09:56 | ED_ITS ---
HPI - Syncope General Chief Complaint: Dizziness Stated Complaint: Fainted/Fall/Dizzy Hx L Hip Replacement Time Seen by Provider: 12/09/22 09:51 Source: patient and family Limitations: no limitations History of Present Illness HPI narrative: Patient is a 76-year-old without significant past medical history presenting today after a near syncopal episode. She had a total hip arthroplasty on the left 11/07/2022. She has progressing and been doing well. She is up to the cane. Pain is controlled ibuprofen. She got up this morning feels a little bit dizzy and lightheaded made it to the bathroom sat down when she fell over on the left side. She landed on the left hip she was able to get up and ambulate to the ED. She denies any chest pain palpitations no fever or chills. She is never felt dizzy previous previously. No numbness tingling or weakness. Difficult to move left hip she feels like it has different up but she is able to. No fever or chills. No abdominal pain nausea or vomiting. Related Data Home Medications Medication Instructions Recorded Confirmed fluticasone propionate 50 2 spray intranasal DAILY PRN 03/13/19 11/07/22 mcg/actuation nasal Seasonal allergies spray,suspension (Flonase Allergy Relief) naproxen sodium 220 mg capsule 220 mg PO BID 03/13/19 11/07/22 (Aleve) famotidine 20 mg tablet (Pepcid) 20 mg PO DAILY 11/01/22 11/07/22 loratadine 10 mg tablet (Claritin) 10 mg PO DAILY 11/07/22 11/07/22 multivitamin 1 tab PO DAILY 11/07/22 11/07/22 Allergies Allergy/AdvReac Type Severity Reaction Status Date / Time amoxicillin Allergy Severe Itching to Verified 12/09/22 09:44 hands/feet latex Allergy Severe Red skin, Verified 12/09/22 09:44 welts epinephrine AdvReac Severe Hyperactive, Verified 12/09/22 09:44 dizziness Review of Systems Review of Systems ROS Unobtainable: All systems reviewed & are unremarkable except as noted in HPI and below Patient History Medical History Arthritis GERD with esophagitis History of Mohs micrographic surgery for skin cancer (02/2021) Hypoglycemia Insomnia Osteoarthritis Seasonal allergies Surgical History History of bunionectomy of both great toes 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) Hx of bilateral cataract extraction (2020) Hx of hand surgery Hx of oral surgery (~06/2018) Hx of tooth extraction (11/2021) Social History household members: spouse Smoking Status: Never smoker alcohol intake: current Smoking Status: Never smoker alcohol intake frequency: 0-2 drinks per day Substance Use Type: does not use Exam Initial Vital Signs Initial Vital Signs: Vital Signs Temperature 97.9 F 12/09/22 09:30 Pulse Rate 72 12/09/22 09:30 Respiratory Rate 20 12/09/22 09:30 Blood Pressure 194/96 H 12/09/22 09:30 Pulse Oximetry 99 12/09/22 09:30 Oxygen Delivery Method Room Air 12/09/22 09:30 GENERAL: Alert pleasant well-appearing 76-year-old female and in no acute distress. HEENT: Head atraumatic,EOMI, pupils reactive, face symmetric, moist mucous membranes CARDIOVASCULAR: Regular rate and rhythm without murmurs, rubs or gallops. RESPIRATORY: Breath sounds equal bilaterally, no wheezes rales or rhonchi. ABDOMEN: Soft, nontender. Normoactive bowel sounds all 4 quadrants. No guarding or rebound. EXTREMITIES: Normal range of motion, no clubbing or edema. Neurovascularly intact NEUROLOGICAL: Alert and oriented x4. Weight Count Operator strength equal bilaterally, sensation equal in all extremities able to lift lower extremities, face is symmetric SKIN: Warm, dry, no laceration, no petechiae, no rashes or lesions. Course Orders Ordered: ED Orders 12/09/22 09:38 XR chest 1V Stat 12/09/22 09:44 XR hand LT min 3V Stat XR hip w pel if done LT 2V Stat 12/09/22 09:45 Complete Blood Count AUTO DIFF Stat Comprehensive Metabolic Panel Stat Lipase Stat Magnesium Stat PTT Partial Thromboplastin Olu Stat Prothrombin Time INR Stat Troponin & CK Cardiac Panel Stat 12/09/22 09:48 EKG-12 Lead Stat 12/09/22 10:12 CT angio chest PE protocol Stat Discontinued Medications Ketorolac Tromethamine (Ketorolac 30 Mg/Ml Vial) 15 mg IV NOW ONE Stop: 12/09/22 10:13 Last Admin: 12/09/22 10:31 Dose: 15 mg Documented By: LOLI Vital Signs Vital signs: Vital Signs - 8 hr 12/09/22 09:30 12/09/22 09:37 12/09/22 09:38 Temperature 97.9 F Pulse Rate 72 75 Respiratory Rate 20 23 Blood Pressure 194/96 H 194/86 H Pulse Oximetry 99 97 Oxygen Delivery Method Room Air 12/09/22 09:45 12/09/22 09:53 12/09/22 09:53 Temperature Pulse Rate 74 74 Respiratory Rate 21 21 Blood Pressure 196/74 H Pulse Oximetry 99 98 Oxygen Delivery Method 12/09/22 10:00 12/09/22 10:00 12/09/22 10:15 Temperature Pulse Rate 68 67 Respiratory Rate 20 18 Blood Pressure 169/70 H Pulse Oximetry 99 97 Oxygen Delivery Method 12/09/22 10:30 12/09/22 10:45 12/09/22 11:00 Temperature Pulse Rate 79 73 64 Respiratory Rate 21 20 21 Blood Pressure Pulse Oximetry 99 99 98 Oxygen Delivery Method 12/09/22 11:15 12/09/22 11:30 12/09/22 11:45 Temperature Pulse Rate 63 63 63 Respiratory Rate 21 20 19 Blood Pressure Pulse Oximetry 98 96 96 Oxygen Delivery Method 12/09/22 12:00 12/09/22 12:15 12/09/22 12:30 Temperature Pulse Rate 64 64 65 Respiratory Rate 21 18 11 L Blood Pressure Pulse Oximetry 92 95 93 Oxygen Delivery Method 12/09/22 12:31 12/09/22 12:31 12/09/22 12:45 Temperature Pulse Rate 64 64 Respiratory Rate 13 11 L Blood Pressure 122/58 L Pulse Oximetry 95 97 Oxygen Delivery Method Room Air 12/09/22 14:06 Temperature Pulse Rate 70 Respiratory Rate 15 Blood Pressure 141/78 H Pulse Oximetry 99 Oxygen Delivery Method Room Air MDM - Syncope Lab Data 12/09/22 09:45 12/09/22 09:45 Labs: Lab Results 12/09/22 12/09/22 12/09/22 Range/Units 09:45 09:45 09:45 WBC 6.3 (4.5-11.0) X10^3/uL RBC 4.36 (4.0-5.2) X10^6/uL Hgb 13.2 (12.0-16.0) g/dL Hct 38.5 (36-46) % MCV 88.2 (80-100) fL MCH 30.2 (26-34) PG MCHC 34.3 (30-36) % RDW 13.4 (11.6-14.8) % Plt Count 295 (150-400) X10^3/uL Neut % (Auto) 68.3 (50-75) % Lymph % (Auto) 22.4 L (25-40) % Sully % (Auto) 6.2 (3-14) % Eos % (Auto) 2.1 (2-4) % Baso % (Auto) 1.0 (0-2) % Neut # (Auto) 4300 (4712-4423) /uL Lymph # (Auto) 1400 (6436-7508) /uL Sully # (Auto) 400 (0-900) /uL Eos # (Auto) 100 (0-450) /uL Baso # (Auto) 100 (0-100) /uL PT 12.5 (10.1-12.7) SECONDS INR 1.1 (0.9-1.3) APTT 37 H (26-36) SECONDS Sodium 138 (137-145) mmol/L Potassium 3.5 (3.4-5.1) mmol/L Chloride 100 (98-107) mmol/L Carbon Dioxide 29 (22-32) mmol/L BUN 16 (7-17) mg/dL Creatinine 0.61 (0.52-1.04) mg/dL Estimated GFR > 60 (>60) mL/min BUN/Creatinine Ratio 26.2 H (6-22) Glucose 105 (80-110) mg/dL Calcium 9.5 (8.4-10.2) mg/dL Magnesium 2.1 (1.6-2.3) mg/dL Total Bilirubin 0.5 (0.2-1.3) mg/dL AST 25 (14-36) IU/L ALT 25 (<35) IU/L Alkaline Phosphatase 80 (38-126) U/L Total Creatine Kinase 38 (30-135) U/L Troponin I < 0.012 (0.01-0.034) ng/mL Total Protein 8.1 (6.3-8.2) g/dL Albumin 4.5 (3.5-5.0) g/dL Globulin 3.6 (1.7-4.1) g/dL Albumin/Globulin Ratio 1.3 (1.0-2.8) Lipase 62 (23-300) U/L Urine Dip Bedside Urine Glucose Negative Bedside Urine Bilirubin - Negative Bedside Urine Ketone - Negative Urine Specific [place] 1.005 Bedside Urine Occult Blood - Negative Bedside Urine pH 8.5 Bedside Urine Protein - Negative Bedside Urine Urobilinogen - Negative Bedside Urine Nitrite - Negative Bedside Urine Leukocytes - Negative Esterase Imaging Data Chest x-ray: Radiologist's Impression: PROCEDURE:? XR CHEST 1V ? INDICATIONS:? chest pain ? TECHNIQUE:? One view of the chest was acquired.? ? COMPARISON:? [facility], , CHEST 2 VIEW, 05/26/2015, 14:16. ? FINDINGS:? ? Surgical changes and devices:? None.? ? Lungs and pleura:? Lungs are clear.? No pleural effusions or pneumothorax.? ? Mediastinum:? Mediastinal contours appear normal.? Heart size is normal.? ? Bones and chest wall:? No suspicious bony lesions.? Overlying soft tissues a ppear unremarkable.? ? IMPRESSION:? No acute cardiopulmonary abnormality. ? ? ? Dictated by: Jasmeet Landry M.D. on 12/09/2022 at 9:53 ? ? Extremity x-ray #1: Radiologist's Impression: PROCEDURE:? XR HAND LT MIN 3V ? INDICATIONS:? recent left hip replacment, fall onto left hip and hand ? TECHNIQUE:? 3 views of the hand(s) acquired.? ? COMPARISON:? None. ? FINDINGS:? ? Bones:? No fractures or dislocations.? Carpal bones are normally aligned.? No suspicious bony lesions.? The distal interphalangeal joints demonstrate joint space narrowing and osteophytes.? The thumb interphalangeal joint demonstrates joint space narrowing and osteophytes.? The 1st carpometacarpal joint and triscaphe joint have joint space narrowing and subchondral sclerosis. ? Soft tissues:? No suspicious soft tissue calcifications.? ? IMPRESSION:? Degenerative changes consistent with osteoarthritis. ? ? Dictated by: Jasmeet Landry M.D. on 12/09/2022 at 10:12 ? ? Extremity x-ray #2: Radiologist's Impression: PROCEDURE:? XR HIP W PEL IF DONE LT 2V ? INDICATIONS:? recent left hip replacment, fall onto left hip and hand ? TECHNIQUE:? AP pelvis with lateral view(s) of the 3 hip(s).? ? COMPARISON:? [facility], CR, XR HIP W PEL IF DONE LT 2V, 11/07/2022, 17:00. ? FINDINGS:? ? Bones:? No fractures or dislocations.? Pelvic ring appears intact.? No suspicious bony lesions.? Bilateral hip replacements are seen.? No perihardware lucency. ? Soft tissues:? The visualized bowel gas pattern is normal.? No suspicious soft tissue calcifications.? ? IMPRESSION:? No acute traumatic abnormality of the pelvis or left hip.? Status post bilateral hip replacement without complication. ? Dictated by: Jasmeet Landry M.D. on 12/09/2022 at 9:51 CT scan - chest: Radiologist's Impression: PROCEDURE:? CT ANGIO CHEST PE PROTOCOL ? INDICATIONS:? syncope recent hip surgery ? TECHNIQUE:? After the administration of intravenous contrast, 2 mm thick sections acquired from the pulmonary apices to the posterior costophrenic angles.? 3-dimensional maximum intensity projection (MIP) coronal and sagittal reformats were then acquired through the thorax.? For radiation dose reduction, the following was used:? automated exposure control, adjustment of mA and/or kV according to patient size.? ? COMPARISON:? None. ? FINDINGS: Image quality:? Excellent.? ? Lungs and pleura: No acute air space opacities. No pleural effusions or pneumothorax.? Central and peripheral airways are patent and normal in caliber.? ? Mediastinum:? Heart size is normal.? No pericardial effusion.? No mediastinal adenopathy by size criteria.? Thoracic aorta and central pulmonary arteries are normal in size.? Esophagus is normal in caliber.? No hiatal hernia. ? Bones and chest wall:? No suspicious bony lesions. No vertebral body compression fractures.? No axillary or supraclavicular adenopathy by size criteria.? Thyroid gland is normal. ? Abdomen:? Limited visualization of the upper abdomen shows no acute abnormality. ? ? IMPRESSION: 1. No pulmonary embolism. 2. No acute abnormality of the chest.? Dictated by: Jasmeet Landry M.D. on 12/09/2022 at 11:27 ? ? ECG Data Interpretation: Sinus rhythm rate 66 [place] interval 154 QRS [address] changes or T-wave inversions MDM Narrative Medical decision making narrative: Patient 76-year-old female with recent status post left total presents today after nursing for episode and fall tip. No fracture of the left hip no pulmonary embolism causing her syncope. Blood work is overall reassuring without evidence of significant dehydration ARTUR electrolyte abnormality or infection. Urinalysis is also negative. She ambulated to the restroom without any difficulty. EKG does not show any abnormality she is been on the monitor without episodes of bradycardia. At this time seem reasonable to discharge home. Vitals have been stable no evidence of hypotension. Discharge Plan Departure Patient Disposition: Home Clinical Impression: Near syncope Instructions: DI for Syncope in Adults (Fainting) Activity Restrictions/Additional Instructions: *You have been diagnosed with near syncope *What to do: At this time blood work and imaging overall reassuring. I am sorry that he out. I hope that you feel better. *Continue to take medications as directed *Follow up with your primary care provider in 2-3 days or call [phone] *Return to ER if you should have recurrent episode of syncope, chest pain palpitations or any new, worsening or concerning symptoms Prescriptions: No Action fluticasone propionate [Flonase Allergy Relief] 50 mcg/actuation [place],Suspension 2 spray INTRANASAL DAILY PRN (Reason: Seasonal allergies) naproxen sodium [Aleve] 220 mg Capsule 220 mg PO BID famotidine [Pepcid] 20 mg Tablet 20 mg PO DAILY multivitamin Tablet 1 tab PO DAILY loratadine [Claritin] 10 mg Tablet 10 mg PO DAILY Referrals: Juma Ramos ARNP [Primary Care Provider] - Stand Alone Forms: Patient Portal/API
[2022-12-09 10:03] LABS: INR 1.1 (0.9-1.3); Prothrombin Time 12.5 SECONDS (10.1-12.7)
[2022-12-09 10:06] LABS: PTT Partial Thromboplastin Tim 37 SECONDS (26-36)
[2022-12-09 10:07] LABS: Alanine Aminotransferase 25 IU/L (<35); Albumin 4.5 g/dL (3.5-5.0); Albumin Globulin Ratio 1.3 (1.0-2.8); Alkaline Phosphatase 80 U/L (38-126); Aspartate Aminotransferase 25 IU/L (14-36); BUN Creatinine Ratio 26.2 (6-22); Bilirubin Total 0.5 mg/dL (0.2-1.3); Blood Urea Nitrogen 16 mg/dL (7-17); Calcium 9.5 mg/dL (8.4-10.2); Carbon Dioxide 29 mmol/L (22-32); Chloride 100 mmol/L (98-107); Creatine Kinase 38 U/L (30-135); Estimated Glomerular Filt Rate > 60 mL/min (>60); Globulin 3.6 g/dL (1.7-4.1); Glucose 105 mg/dL (80-110); HEMOLYSIS < 15 (0-50); Lipase 62 U/L (23-300); Magnesium 2.1 mg/dL (1.6-2.3); Potassium 3.5 mmol/L (3.4-5.1); Sodium 138 mmol/L (137-145); Total Protein 8.1 g/dL (6.3-8.2)
--- NOTE | 2022-12-09 10:12 | DI.CT.S_ITS ---
PROCEDURE: CT ANGIO CHEST PE PROTOCOL INDICATIONS: syncope recent hip surgery TECHNIQUE: After the administration of intravenous contrast, 2 mm thick sections acquired from the pulmonary apices to the posterior costophrenic angles. 3-dimensional maximum intensity projection (MIP) coronal and sagittal reformats were then acquired through the thorax. For radiation dose reduction, the following was used: automated exposure control, adjustment of mA and/or kV according to patient size. COMPARISON: None. FINDINGS: Image quality: Excellent. Lungs and pleura: No acute air space opacities. No pleural effusions or pneumothorax. Central and peripheral airways are patent and normal in caliber. Mediastinum: Heart size is normal. No pericardial effusion. No mediastinal adenopathy by size criteria. Thoracic aorta and central pulmonary arteries are normal in size. Esophagus is normal in caliber. No hiatal hernia. Bones and chest wall: No suspicious bony lesions. No vertebral body compression fractures. No axillary or supraclavicular adenopathy by size criteria. Thyroid gland is normal. Abdomen: Limited visualization of the upper abdomen shows no acute abnormality. IMPRESSION: 1. No pulmonary embolism. 2. No acute abnormality of the chest. Dictated by: Jasmeet Landry M.D. on 12/09/2022 at 11:27 Approved by: Jasmeet Landry M.D. on 12/09/2022 at 11:33
[2022-12-09 10:19] LABS: Troponin I < 0.012 ng/mL (0.01-0.034)
[2022-12-09] MEDS: KETOROLAC 30 MG/ML VIAL 15 MG IV (10:31)
== END 2022-12-09 14:07 | disposition home or self-care (01) ==
PROVIDERS: Emergency Provider Emergency Medicine; PCP Registered Nurse
DX: R55 Syncope and collapse (principal); R42 Dizziness and giddiness; Z96.642 Presence of left artificial hip joint
CPT/HCPCS: 36415; 71045; 71275; 73130; 73502; 80053; 81003; 82550; 83690; 83735; 84484; 85025; 85610; 85730; 93005; 93010; 99284; J1885; Q9967

== ENCOUNTER 2022-12-09 16:05 | Observation (INO) | payer MEDICARE, SELFPAY ==
[2022-11-07 11:46] VITALS: BMI 24.0
[2022-12-09] VITALS (8 sets, daily range): BP systolic 140–167; BP diastolic 58–62; PULSE 65–88; RESP 13–21; TEMP 36.3–36.5; O2SAT 94–99; BMI 25.0
--- NOTE | 2022-12-09 16:14 | DI.CT.S_ITS ---
PROCEDURE: CT HEAD/BRAIN WO CON INDICATIONS: syncope x 2 TECHNIQUE: Noncontrast 4.5 mm thick angled axial sections acquired from the foramen magnum to the vertex, with coronal and sagittal reformats. For radiation dose reduction, the following was used: automated exposure control, adjustment of mA and/or kV according to patient size. COMPARISON: None. FINDINGS: Image quality: Excellent. CSF spaces: Basal cisterns are patent. No extra-axial fluid collections. The ventricles are symmetric in size and shape. Brain: No intracranial bleeds or masses. There is cerebral volume loss for age, with resultant ventricular and sulcal prominence. There are periventricular and deep white matter chronic small vessel ischemic changes. There is intracranial internal carotid artery atherosclerosis. Skull and face: Calvarium and visualized facial bones appear intact, without suspicious lesions. Sinuses: Visualized sinuses and mastoids are clear. IMPRESSION: 1. No acute intracranial abnormality. 2. Cerebral volume loss and small vessel ischemic changes. Dictated by: Jasmeet Landry M.D. on 12/09/2022 at 15:57 Approved by: Jasmeet Landry M.D. on 12/09/2022 at 15:59
--- NOTE | 2022-12-09 16:17 | DI.RAD.S_ITS ---
PROCEDURE: XR KNEE LT 3V INDICATIONS: pain, post fall TECHNIQUE: 3 views of the knee were acquired. COMPARISON: None. FINDINGS: Bones: No fractures or dislocations. No suspicious bony lesions. Degenerative changes of the left knee with medial joint space narrowing and subchondral sclerosis. Soft tissues: No joint effusion. No suspicious soft tissue calcifications. IMPRESSION: 1. No acute traumatic abnormality of the left knee. 2. Degenerative changes of the left knee consistent with osteoarthritis with medial joint space narrowing. Dictated by: Jasmeet Landry M.D. on 12/09/2022 at 15:56 Approved by: Jasmeet Landry M.D. on 12/09/2022 at 15:57
[2022-12-09 16:40] LABS: BUN Creatinine Ratio 25.8 (6-22); Blood Urea Nitrogen 16 mg/dL (7-17); Calcium 9.5 mg/dL (8.4-10.2); Carbon Dioxide 27 mmol/L (22-32); Chloride 102 mmol/L (98-107); Creatine Kinase 32 U/L (30-135); Estimated Glomerular Filt Rate > 60 mL/min (>60); Glucose 124 mg/dL (80-110); HEMOLYSIS < 15 (0-50); Potassium 3.6 mmol/L (3.4-5.1); Sodium 138 mmol/L (137-145)
[2022-12-09 16:52] LABS: Troponin I < 0.012 ng/mL (0.01-0.034)
[2022-12-09] MEDS: SODIUM CHLORIDE 0.9% 1,000 ML 1000 ML IV (17:10)
[2022-12-09 17:13] LABS: Lactate (Lactic Acid) 1.7 mmol/L (0.7-2.1)
--- NOTE | 2022-12-09 17:16 | ED_ITS ---
HPI - Syncope General Chief Complaint: Syncope Stated Complaint: Syncope Time Seen by Provider: 12/09/22 16:14 Source: patient and EMS Mode of arrival: EMS Limitations: no limitations History of Present Illness HPI narrative: Patient 76-year-old female presents today for the 2nd time for syncopal episode. I saw and evaluated her just over 2 before for syncopal episode. She reports that she woke up this morning feeling dizzy lightheaded went to the bathroom sat down and fell to the left side on her recent FERNANDO. She had blood work CT angio x-rays that were negative. She ambulated to restroom and was discharged home. When she went she sat down at the table to eat when she passed out again. No seizure activity is reported episodes like they were brief. She is not on anticoagulation or antiplatelet medication. She was not hypotensive or bradycardic in the ED in vitals are stable again upon arrival. Related Data Home Medications Medication Instructions Recorded Confirmed fluticasone propionate 50 2 spray intranasal DAILY PRN 03/13/19 12/09/22 mcg/actuation nasal Seasonal allergies spray,suspension (Flonase Allergy Relief) naproxen sodium 220 mg capsule 220 mg PO BID PRN Pain (Scale 03/13/19 12/09/22 (Aleve) Score 1-3) famotidine 20 mg tablet (Pepcid) 20 mg PO DAILY 11/01/22 12/09/22 loratadine 10 mg tablet (Claritin) 10 mg PO DAILY 11/07/22 12/09/22 multivitamin 1 tab PO DAILY 11/07/22 12/09/22 Allergies Allergy/AdvReac Type Severity Reaction Status Date / Time latex Allergy Severe Red skin, Verified 12/09/22 09:44 welts amoxicillin Allergy Intermediate Itching to Verified 12/10/22 07:32 hands/feet epinephrine AdvReac Severe Hyperactive, Verified 12/09/22 09:44 dizziness Review of Systems Review of Systems ROS Unobtainable: All systems reviewed & are unremarkable except as noted in HPI and below Patient History Medical History Arthritis GERD with esophagitis History of Mohs micrographic surgery for skin cancer (02/2021) Hypoglycemia Insomnia Osteoarthritis Seasonal allergies Surgical History History of bunionectomy of both great toes 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 HEENT: Head atraumatic,EOMI, pupils reactive, face symmetric, moist mucous membranes CARDIOVASCULAR: Regular rate and rhythm without murmurs, rubs or gallops. RESPIRATORY: Breath sounds equal bilaterally, no wheezes rales or rhonchi. ABDOMEN: Soft, nontender. Normoactive bowel sounds all 4 quadrants. No guarding or rebound. EXTREMITIES: Normal range of motion, no clubbing or edema. Neurovascularly intact NEUROLOGICAL: Alert and oriented x4. 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 Distal pedal pulses are intact. Cranial nerves intact. SKIN: Warm, dry, no laceration, no petechiae, no rashes or lesions. Course Orders Ordered: Discontinued Medications Acetaminophen (Acetaminophen 325 Mg Tablet) 650 mg PO Q6H PRN PRN Reason: Fever/Mild Pain (1-3) Last Admin: 12/11/22 01:36 Dose: 650 mg Documented By: Admin: 12/09/22 19:02 Dose: 650 mg Documented By: SR Enoxaparin Sodium (Enoxaparin 40 Mg/0.4 Ml Syringe) 40 mg SUBCUT DAILY [facility] Last Admin: 12/11/22 08:18 Dose: 40 mg Documented By: Admin: 12/10/22 08:24 Dose: 40 mg Documented By: KEKE Famotidine (Famotidine 20 Mg Tablet) 20 mg PO DAILY [facility] Last Admin: 12/11/22 08:19 Dose: 20 mg Documented By: Admin: 12/10/22 08:24 Dose: 20 mg Documented By: KEKE Sodium Chloride (Normal Saline 0.9%) 1,000 mls @ 1,000 mls/hr IV BOLUS ONE Stop: 12/09/22 18:05 Last Infusion: 12/09/22 18:15 Dose: 0 mls/hr Documented By: Admin: 12/09/22 17:10 Dose: 1,000 mls/hr Documented By: LOLI Sodium Chloride (Normal Saline 0.9%) 1,000 mls @ 100 mls/hr IV CONT HIRAM Stop: 12/10/22 06:14 Last Infusion: 12/10/22 05:01 Dose: 100 mls/hr Documented By: Admin: 12/09/22 19:04 Dose: 100 mls/hr Documented By: Loratadine (Loratadine 10 Mg Tablet) 10 mg PO DAILY [facility] Last Admin: 12/11/22 08:19 Dose: 10 mg Documented By: Admin: 12/10/22 09:13 Dose: Not Given Documented By: KEKE Melatonin (Melatonin 3 Mg Tablet) 6 mg PO BEDTIME PRN PRN Reason: Insomnia Naloxone HCl (Naloxone 0.4 Mg/Ml Vial) 0.2 mg IV Q2MIN PRN PRN Reason: Opiate Reversal Polyethylene Glycol (Polyethylene Glycol 3350 17 Gm Powd.Pack) 17 gm PO DAILY PRN PRN Reason: Constipation Sennosides (Sennosides 8.6 Mg Tablet) 8.6 mg PO BID PRN PRN Reason: Constipation Vital Signs Vital signs: Vital Signs - 8 hr 12/09/22 16:10 12/09/22 16:09 12/09/22 16:11 Temperature 97.7 F Pulse Rate 88 76 71 Respiratory Rate 20 13 17 Blood Pressure 158/58 H Pulse Oximetry 98 98 97 Oxygen Delivery Method Room Air 12/09/22 16:11 12/09/22 16:35 12/09/22 17:00 Temperature Pulse Rate 65 72 Respiratory Rate 15 Blood Pressure 158/58 H Pulse Oximetry 96 94 Oxygen Delivery Method 12/09/22 17:30 12/09/22 18:00 Temperature Pulse Rate 72 78 Respiratory Rate 17 21 Blood Pressure Pulse Oximetry 99 97 Oxygen Delivery Method MDM - Syncope Lab Data 12/11/22 05:35 12/11/22 05:35 Labs: Lab Results 12/09/22 12/09/22 Range/Units 16:00 16:00 Sodium 138 (137-145) mmol/L Potassium 3.6 (3.4-5.1) mmol/L Chloride 102 (98-107) mmol/L Carbon Dioxide 27 (22-32) mmol/L BUN 16 (7-17) mg/dL Creatinine 0.62 (0.52-1.04) mg/dL Estimated GFR > 60 (>60) mL/min BUN/Creatinine Ratio 25.8 H (6-22) Glucose 124 H (80-110) mg/dL Lactate 1.7 (0.7-2.1) mmol/L Calcium 9.5 (8.4-10.2) mg/dL Total Creatine Kinase 32 (30-135) U/L Troponin I < 0.012 (0.01-0.034) ng/mL Imaging Data CT scan - head: Radiologist's Impression: No acute intracranial abnormality Cerebral volume loss and small vessel ischemic changes Extremity x-ray #1: Radiologist's Impression: Knee x-ray no acute traumatic abnormality of the knee. Degenerative changes of the knee consistent with osteoarthritis with medial joint space narrowing. ECG Data Interpretation: Sinus rhythm rate 75 [place] interval 174 QRS [address] changes similar to prior MDM Narrative Medical decision making narrative: Patient had a recurrent syncopal episode today unclear reason. She would a full workup just a few hours ago. Head CT today is negative repeating troponin electrolytes and lactate are also all reassuring and negative. She is not hypotensive hypoglycemic bradycardic tachycardic or sign of infection. Unclear cause of syncope. Dr. Blank updated on patient's symptoms test results and kindly accepts for observation Discharge Plan Departure Patient Disposition: Admitted as Observation Clinical Impression: Syncope Admit Date/Time: 12/09/22 18:06 Admit Provider: Kvng Blank
--- NOTE | 2022-12-09 17:38 | P.HP_ITS ---
History of Present Illness History of Present Illness Date Patient Seen: 12/09/22 Time Patient Seen: 19:30 Chief complaint: Syncope Narrative: Alise Valdez is a 76yo F with PMH of recent bilateral hip replacements, GERD, and seasonal allergies who presents with syncope x2. Patient states she woke up this morning and used the restroom and while on the toilet patient became faint and almost passed out. She did not fully lose consciousness. She was seen in out ED and had reassuring workup so was sent home. She then had lunch with her and about 5 minutes after eating she passed out. She came to quickly and had no confusion following. She was brought back to the ED and admitted for syncope workup. Patient states she currently feels well. She reports she has been having some vertigo lately with nausea. Vertigo seems to be worse when turning her head to the left and is intermittent and not constant. She denies CP, seizure-like activity, headache, SOB, abd pain, or diarrhea. 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) Hx of bilateral cataract extraction (2020) Hx of hand surgery Hx of oral surgery (~06/2018) Hx of tooth extraction (11/2021) Social History household members: spouse Smoking Status: Never smoker alcohol intake: current Meds Home Medications and Allergies Home Medications Medication Instructions Recorded Confirmed Type fluticasone propionate 50 2 spray intranasal DAILY PRN 03/13/19 11/07/22 History mcg/actuation nasal Seasonal allergies spray,suspension (Flonase Allergy Relief) naproxen sodium 220 mg capsule 220 mg PO BID 03/13/19 11/07/22 History (Aleve) famotidine 20 mg tablet (Pepcid) 20 mg PO DAILY 11/01/22 11/07/22 History loratadine 10 mg tablet (Claritin) 10 mg PO DAILY 11/07/22 11/07/22 History multivitamin 1 tab PO DAILY 11/07/22 11/07/22 History Allergies Allergy/AdvReac Type Severity Reaction Status Date / Time amoxicillin Allergy Severe Itching to Verified 12/09/22 09:44 hands/feet latex Allergy Severe Red skin, Verified 12/09/22 09:44 welts epinephrine AdvReac Severe Hyperactive, Verified 12/09/22 09:44 dizziness Review of Systems Review of Systems Narrative: All other systems reviewed with the patient and are negative unless otherwise stated. Exam Vital Signs (past 8 hours): - 12/09/22 16:10 12/09/22 16:09 12/09/22 16:11 Temperature 97.7 F Pulse Rate 88 76 71 Respiratory Rate 20 13 17 Blood Pressure 158/58 H Pulse Oximetry 98 98 97 Oxygen Delivery Method Room Air 12/09/22 16:11 Temperature Pulse Rate Respiratory Rate Blood Pressure 158/58 H Pulse Oximetry Oxygen Delivery Method Oxygen Delivery Method Room Air Narrative Exam Narrative: GEN: no acute distress HEENT: dry mucous membranes, PERRL NECK: trachea midline, no JVD CV: regular rate and rhythm, no murmurs PULM: clear bilaterally ABD: soft, nontender, nondistended, no organomegaly EXT: warm and well perfused with no edema NEURO: awake, alert, oriented, no focal deficits Objective Labs 12/09/22 16:00 Labs: Laboratory Results - last 24 hr 12/09/22 12/09/22 16:00 16:00 Sodium 138 Potassium 3.6 Chloride 102 Carbon Dioxide 27 BUN 16 Creatinine 0.62 Estimated GFR > 60 BUN/Creatinine Ratio 25.8 H Glucose 124 H Lactate 1.7 Calcium 9.5 Total Creatine Kinase 32 Troponin I < 0.012 Assessment & Plan Assessment & Plan narrative: # syncope -patient syncopized x2, once while on the toilet and 2nd time postprandial -head CT unremarkable -no evidence of bradycardia on EKG -labs reassuring -obtain echo -tele -obtain orthostatic vitals Q shift -patient dry on exam, continue IVF # vertigo -sounds consistent with BPPV -OT consult to do Morrill-hallpike #GERD -continue home Pepcid Code status is full code. DVT prophylaxis with Lovenox. Proxy is Senthil. I have reviewed home meds and used all available resources to reconcile the home meds. This patient will be admitted as observation and will require less than 2 midnights of hospital time to treat syncope.
--- NOTE | 2022-12-09 18:08 | DI.ECHO.S_ITS ---
[facility] +---------+ : : [address] : : : : [id number] : : : : Phone: [phone]+ Echocardiogram Report + + :Name: HAN MORALES Study Date: 12/10/2022 Height: 65 in : [id number] ReadingLocation: Weight: 150 lb: : Gender: Female BSA: 1.8 m2 : :: 1945 Age: 76 yrs : :Reason For Study: SYNCOPE : : Performed By: Cindy Rangel : :Referring: DESRIEE CORNELIUS A : + + Interpretation Summary 1) Normal left ventricular thickness, size, wall motion, and systolic function (EF 60-65%). 2) Normal right ventricular size and function. 3) There is mild aortic stenosis (valve area 1.9cm2, mean gradient 5mmHg, severity ratio 0.72). 4) There is mild aortic regurgitation. 5) No prior Echo available for comparison. Procedure: A two-dimensional transthoracic echocardiogram with color flow and Doppler was performed. The study quality was technically adequate. There is no prior echocardiogram noted for this patient. Patient is supine and partially sitting for the exam due to left hip surgery. The patient was in normal sinus rhythm during the exam. Left Ventricle: The left ventricle appears normal in size, wall thickness, and systolic function without any focal wall motion abnormalities. The ejection fraction is estimated to be 65-70%. Diastolic parameters suggest a pseudonormalization pattern, consistent with probable elevated filling pressures. Right Ventricle: The right ventricle is normal in size and function. Atria: Both atria are normal in size. There is no Doppler evidence for an interatrial shunt. Mitral Valve: The mitral valve leaflets appear mildly thickened, but open well. There is a flat closure plane of the the mitral valve leaflets. There is trace mitral regurgitation. Aortic Valve: The aortic valve opens well. The aortic valve is mildly calcified. The peak aortic velocity is 1.6 m/sec. There is mild aortic stenosis. There is mild aortic regurgitation. Tricuspid Valve: The tricuspid valve is normal in structure and function. There is a trace or physiologic amount of tricuspid regurgitation. The right ventricular systolic pressure is estimated to be at least 26 mmHg based on an estimated right atrial pressure of 8 mm Hg. Pulmonic Valve: The pulmonic valve is not well visualized. Great Vessels: The aortic root is normal size. The ascending aorta could not be visualized. The aortic arch is normal in size. The pulmonary is not well visualized. The IVC is of normal diameter and collapses less than 50% with a sniff. This suggests a right atrial pressure of 8 mm Hg. Pericardium/ Pleura There is no pericardial effusion. There is no pleural effusion. MMode/2D Measurements & Calculations LVIDd: 3.7 cm LVOT diam: 1.9 cm LVIDs: 2.0 cm Ao root diam: 3.0 cm FS: 45.2 % Ao Arch Diam (Prox Trans): 2.3 cm EPSS: 0.10 cm IVSd: 0.92 cm LVPWd: 0.86 cm LV ohara. diameter/BSA (cm/m^2): 2.1 LV sys. diameter/BSA (cm/m^2): 1.1 LA A2 area: 20.8 cm2 RA long axis: 4.5 cm LA A4 area: 18.1 cm2 RA area: 10.9 cm2 LA length (vol): 5.5 cm RA vol: 22.4 ml LA vol: 58.6 ml RA : 12.8 ml/m2 LA vol index: 33.5 ml/m2 IVC diam: 1.8 cm RVD1 (basal): 3.3 cm TAPSE: 2.2 cm Doppler Measurements & Calculations Ao V2 max: 159.2 cm/sec LVOT Max Enriuqe: 110.4 cm/sec Ao V2 mean: 109.1 cm/sec LV V1 max P.9 mmHg Ao max P.1 mmHg LV V1 VTI: 27.0 cm Ao mean P.2 mmHg KERRY(I,D): 1.9 cm2 Ao V2 VTI: 37.5 cm KERRY(V,D): 1.9 cm2 sev ratio: 0.72 KERRY indexed to BSA (cm^2/m^2): 1.1 AI P1/2t: 435.6 msec AI dec slope: 265.4 cm/sec2 MV E max enrique: 106.4 cm/sec TR max enrique: 211.4 cm/sec MV A max enrique: 97.2 cm/sec TR max P.9 mmHg MV E/A: 1.1 Med Peak E' Enrique: 6.9 cm/sec E/E' med: 15.3 Lat Peak E' Enrique: 5.1 cm/sec E/E' lat: 21.0 E/e' average: 18.2 MV P1/2t: 59.4 msec MV P1/2t max enrique: 106.4 cm/sec SV(LVOT): 72.9 ml MVA(P1/2t): 3.7 cm2 Reading Physician:02:44 PM
[2022-12-09] MEDS: ACETAMINOPHEN 325 MG TABLET 650 MG PO (19:02)
[2022-12-09] MEDS: SODIUM CHLORIDE 0.9% 1,000 ML 100 ML IV (19:04)
[2022-12-10] VITALS (9 sets, daily range): BP systolic 116–177; BP diastolic 50–71; PULSE 67–79; RESP 14–18; TEMP 36.1–37.6; O2SAT 18–98
[2022-12-10 06:24] LABS: Add Manual Diff / Slide Review NO; Basophils Absolute Auto 100 /uL (0-100); Basophils Percent Auto 0.9 % (0-2); Eosinophils Absolute Auto 200 /uL (0-450); Eosinophils Percent Auto 2.4 % (2-4); Hematocrit 33.2 % (36-46); Hemoglobin 11.3 g/dL (12.0-16.0); Lymphocytes Absolute Auto 2000 /uL (1100-4500); Lymphocytes Percent Auto 27.4 % (25-40); Mean Corpuscular HGB Conc 34.1 % (30-36); Mean Corpuscular Hemoglobin 30.2 PG (26-34); Mean Corpuscular Volume 88.5 fL (80-100); Monocytes Absolute Auto 500 /uL (0-900); Monocytes Percent Auto 6.8 % (3-14); Neutrophils Absolute Auto 4600 /uL (1500-7000); Neutrophils Percent Auto 62.5 % (50-75); Platelet Count 250 X10^3/uL (150-400); Red Blood Cell Count 3.75 X10^6/uL (4.0-5.2); Red Cell Distribution Width 13.2 % (11.6-14.8); White Blood Cell Count 7.3 X10^3/uL (4.5-11.0)
[2022-12-10 06:33] LABS: BUN Creatinine Ratio 23.2 (6-22); Blood Urea Nitrogen 13 mg/dL (7-17); Calcium 8.3 mg/dL (8.4-10.2); Carbon Dioxide 26 mmol/L (22-32); Chloride 106 mmol/L (98-107); Estimated Glomerular Filt Rate > 60 mL/min (>60); Glucose 89 mg/dL (80-110); HEMOLYSIS < 15 (0-50); Potassium 3.8 mmol/L (3.4-5.1); Sodium 138 mmol/L (137-145)
[2022-12-10 06:44] LABS: Troponin I < 0.012 ng/mL (0.01-0.034)
--- NOTE | 2022-12-10 07:47 | PM.PN.1 ---
Subjective Subjective Date Patient Seen: 12/10/22 Time Patient Seen: 10:20 Interval history: She is seen today to follow-up her brief bursts of vertigo and syncope episodes. She remains on telemetry without any observed significant bradycardia or tachycardia. She is pending an echocardiogram. I spoke at length with her and her . 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 She is recovering from a hip replacement surgery last week. Her symptoms of vertigo do not sound typical for BPV as they are very staccato or burst and do not last very long. Her symptoms of syncope are also unexplained. She drinks more fluid than she used to so dehydration as the cause of her syncope seems unlikely. She has a mildly parkinsonian appearance but does not have any true mask face, tremor or stiffness. 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 This is an interesting neurological puzzle and I have suggested that they discuss further neurological consultation with their primary care. In the meantime we are evaluating further for arrhythmia as the cause with echocardiogram and ongoing telemetry. The hemoglobin is 11.3 with a normal BNP and troponin less than 0.012. The blood pressure is 148/67 Exam Vital Signs (past 8 hours): - 12/10/22 00:40 12/10/22 04:00 Temperature 97.4 F L 97.0 F L Pulse Rate 68 75 Respiratory Rate 18 18 Blood Pressure 116/50 L 148/67 H Pulse Oximetry 18 L 97 Oxygen Flow Rate 0 Oxygen Delivery Method Room Air Oxygen Flow Rate 0 Narrative Exam Narrative: Alert and oriented x3. 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 She is very detailed and somewhat tangential but quickly returns to the original topic and always answers the question posed. Her radio tower technician are 2/5 symmetric bilateral. Facial expression somewhat muted but continued to be full spectrum. Tongue protrudes straight. Cranial nerves 2-12 test normal [id number] is normal bilaterally The lower extremity plantar flexion is 3/5 bilateral Heart is regular rate and rhythm without murmur Lungs are clear to auscultation bilaterally Extremities have no ankle edema Objective Labs 12/10/22 05:30 12/10/22 05:30 Labs: Laboratory Results - last 24 hr 12/09/22 12/09/22 12/10/22 16:00 16:00 05:30 WBC RBC Hgb Hct MCV MCH MCHC RDW Plt Count Neut % (Auto) Lymph % (Auto) [place] % (Auto) Eos % (Auto) Baso % (Auto) Neut # (Auto) Lymph # (Auto) [place] # (Auto) Eos # (Auto) Baso # (Auto) Sodium 138 Potassium 3.6 Chloride 102 Carbon Dioxide 27 BUN 16 Creatinine 0.62 Estimated GFR > 60 BUN/Creatinine Ratio 25.8 H Glucose 124 H Lactate 1.7 Calcium 9.5 Total Creatine Kinase 32 Troponin I < 0.012 < 0.012 12/10/22 12/10/22 05:30 05:30 WBC 7.3 RBC 3.75 L Hgb 11.3 L Hct 33.2 L MCV 88.5 MCH 30.2 MCHC 34.1 RDW 13.2 Plt Count 250 Neut % (Auto) 62.5 Lymph % (Auto) 27.4 [place] % (Auto) 6.8 Eos % (Auto) 2.4 Baso % (Auto) 0.9 Neut # (Auto) 4600 Lymph # (Auto) 2000 [place] # (Auto) 500 Eos # (Auto) 200 Baso # (Auto) 100 Sodium 138 Potassium 3.8 Chloride 106 Carbon Dioxide 26 BUN 13 Creatinine 0.56 Estimated GFR > 60 BUN/Creatinine Ratio 23.2 H Glucose 89 Lactate Calcium 8.3 L Total Creatine Kinase Troponin I [facility] Medical History Arthritis GERD with esophagitis History of Mohs micrographic surgery for skin cancer (02/2021) Hypoglycemia Insomnia Osteoarthritis Seasonal allergies Surgical History History of bunionectomy of both great toes 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) Hx of bilateral cataract extraction (2020) Hx of hand surgery Hx of oral surgery (~06/2018) Hx of tooth extraction (11/2021) Social History household members: spouse Smoking Status: Never smoker alcohol intake: current Assessment & Plan Assessment & Plan narrative: Recurrent Syncope -patient syncopized x2, once while on the toilet and 2nd time postprandial -head CT unremarkable, proceed to brain MRI and carotid Doppler study -no evidence of bradycardia or significant tachycardia on telemetry and on EKG -labs reassuring -echocardiogram pending -continue telemetry -obtain orthostatic vitals Q shift -patient dry on exam, continue IVF -advise neurological consultation as an outpatient if no cardiac source of the symptoms is identified. -autonomic dysfunction is suspected. No other outward signs of multi-system atrophy evident. No urinary dyscontrol. -PT consult to confirm safe to discharge after echo, likely tomorrow. Vertigo -brief, fleeting episodes atypical for BPV. 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 DVT prophylaxis with Lovenox. Proxy is Senthil.
[2022-12-10] MEDS: FAMOTIDINE 20 MG TABLET PO (08:24)
[2022-12-10] MEDS: ENOXAPARIN 40 MG/0.4 ML SYRINGE SUBCUT (08:24)
--- NOTE | 2022-12-10 10:19 | DI.MRI.S_ITS ---
PROCEDURE: MR HEAD/BRAIN WO CON INDICATIONS: Recurrent syncope TECHNIQUE: Non-contrast axial T1 spin echo, axial T2 fast spin echo, sagittal and axial FLAIR, coronal T2 fast spin echo, axial gradient echo, axial diffusion and ADC through the brain. COMPARISON: None. FINDINGS: Image quality: Excellent. CSF spaces: Ventricles appear symmetric in size and shape. Basal cisterns are patent. No extra-axial fluid collections. Brain: No intracranial bleeds or mass effects. There is cerebral volume loss for age. There are periventricular and deep white matter chronic small vessel ischemic changes. Brainstem appears normal. Diffusion-weighted images show no acute ischemic insults. No chronic ischemic insults. Normal intravascular flow voids are present. Skull and face: Calvarial bone marrow is normal in signal. Orbits are normal. Sinuses: Sinuses and mastoids are clear. IMPRESSION: 1. No acute intracranial abnormality. 2. Cerebral volume loss and small vessel ischemic changes. Dictated by: Jasmeet Landry M.D. on 12/10/2022 at 12:41 Approved by: Jasmeet Landry M.D. on 12/10/2022 at 12:43
--- NOTE | 2022-12-10 11:49 | PT.IIE ---
Surgical History (Last Reviewed 12/09/22 @ 18:26 by Cecy Brown DO) History of bunionectomy of both great toes 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) Hx of bilateral cataract extraction (2020) Hx of hand surgery Hx of oral surgery (~06/2018) Hx of tooth extraction (11/2021) Medical History (Last Reviewed 12/09/22 @ 18:26 by Cecy Brown DO) Arthritis GERD with esophagitis History of Mohs micrographic surgery for skin cancer (02/2021) Hypoglycemia Insomnia Osteoarthritis Seasonal allergies Physical Therapy Inpatient Evaluation/Re-Eval M1 PT/OT-IP Prior Functional Status Start: 12/10/22 10:43 Freq: NEEDED Status: Active Protocol: Document 12/10/22 11:27 [facility] (Rec: 12/10/22 11:48 [facility] [id number]) Medical Review Prior Functional Status Medical History Reviewed Yes Diet/Fluid Consistency Regular Communication no difficulty Mobility and Gait pt s/p left FERNANDO 11/07/22, [facility] , last progressed to walking in house with no device Activities of Daily Living and IADL's indep Prior Functional Level (Other details) indep, does report occasional episodes of dizziness in the past. 20 years ago had PT for dizziness including a maneuver which was helpful. Social History Household Members spouse Living Arrangements House Number of Floors (Floors) One Floor Number of Stairs To Enter/Railing? 0 Home Environment Standard Height Toilet,Walk in Shower Home Equipment Front Wheel Walker,Straight Cane Employment Status Self-Employed M2 PT-IP Current Condition Start: 12/10/22 10:43 Freq: NEEDED Status: Active Protocol: Document 12/10/22 11:27 [facility] (Rec: 12/10/22 11:48 [facility] [id number]) Physical Therapy Current Condition Current Condition Evaluation Date 12/10/22 Treatment Diagnosis syncope Onset Date 12/08/22 M3 PT-IP Subjective Start: 12/10/22 10:43 Freq: NEEDED Status: Active Protocol: Document 12/10/22 11:27 [facility] (Rec: 12/10/22 11:48 [facility] [id number]) Subjective Physical Therapy Visit Type Type Initial Evaluation Visit Start Time 11:03 Visit Stop Time 11:29 Total Visit Minutes 26 Physical Therapy Visit Comments Patient Comments Patient reports fainted 2x on Sunday; 1x when backing up toward the toilet and she fell onto her left side including her left hand, c/o pain and swelling left ring finger ( icing her finger when PT comes into room). Went to ER, sent home then passed out and fell backward from her chair after eating a late breakfast and reports feeling some dizziness and nausea prior to passing out. States dizziness seems to happen when looking down and to the left. Patient Goals Return home Therapy Pain Assessment Pain When Pain Assessed At Rest Pain Present Pain Present Pain Reported FLACC Pain Scale Face No particular expression Legs Normal position; relaxed Activity Quiet, moves easily Cry No cry (awake or asleep) Consolability Content, relaxed FLACC Total 0 Location left ring finger Description Pressure,Tender Pain Management Techniques Apply Cold M4 PT-IP Mobility and Gait Start: 12/10/22 10:43 Freq: NEEDED Status: Active Protocol: Document 12/10/22 11:27 [facility] (Rec: 12/10/22 11:48 [facility] [id number]) PT-Bed Mobility Assessment Supine to Sit Supine to Sit Contact Guard Assistance Scooting Scooting to Edge of Bed Contact Guard Assistance PT-Transfer Assessment Sit to and From Stand Sit to and from Stand Contact Guard Assistance Equipment Transfer Assistive Device Front Wheeled Walker Orthotic/Prosthetic Devices or Brace: No Transfers Transfer Technique ambulation Transfer Ability Level of Assist Contact Guard Assistance Comments Mobility Comments denied dizziness with sit to stand. Gait Assessment Gait Gait Assistance Required: Contact Guard Assist Distance (Feet) 60 Able to Maintain Weight Bearing Status Yes During Gait Assistive Devices Assistive Device Front Wheeled Walker Gait Deviations General Gait Pattern Decreased Stride Length, Decreased Feet Clearance Factors Limiting Gait Function Factors Limiting Gait Function Decreased Strength Comments Gait Comments Patient requested use of FWW today; states she thinks maybe she was getting overconfident about her mobility last week, wants to be safe. Patient denied dizziness while walking until backing up toward chair and looking down and to the left to make sure she knew where chair was, had moderate dizziness briefly, resolved upon sitting PT-Balance Assessment Sitting Balance and Reactions Static Sitting Balance Ability Normal Dynamic Sitting Balance Ability Normal Standing Balance and Reactions Static Standing Balance Ability Good Dynamic Standing Balance Ability Good Device Used FWW M5 PT-IP Objective Assessments Start: 12/10/22 10:43 Freq: NEEDED Status: Active Protocol: Document 12/10/22 11:27 [facility] (Rec: 12/10/22 11:48 [facility] [id number]) Orientation Orientation/Cognition Level of Alertness Alert Orientation Name,Age,Place,Situation Language Function Ability No Deficits Noted Safety Awareness Understands Safety Issues Memory Description No Deficits Noted Gross Range of Motion Lower Extremity ROM Assessment Within Functional Limits Strength Lower Extremity Strength Assessment Within Functional Limits Coordination Assessment Gross Coordination Gross Coordination WNL Sensation Assessment Sensation Gross Sensation WNL Muscle Tone Muscle Tone WNL Yes M6 PT-IP Treatment Start: 12/10/22 10:43 Freq: NEEDED Status: Active Protocol: Document 12/10/22 11:27 [facility] (Rec: 12/10/22 11:48 [facility] [id number]) Physical Therapy Treatment Education Education Provided Precautions,Safety Equipment Issued Equipment Type and Company Avoid putting head down and to the left during mobility skills Other Treatments Other Treatment Performed BP: supine 137/56, sitting 161 /73, standing 168/64 sitting ( after walking) 151/71 M7 PT-IP Assessment and Plan Start: 12/10/22 10:43 Freq: NEEDED Status: Active Protocol: Document 12/10/22 11:27 [facility] (Rec: 12/10/22 11:48 [facility] [id number]) PT Summary Assessment and Plan Potential Rehabilitation Potential Good Status of Condition at Evaluation Evolving Summary Impairments Bed Mobility,Transfers, Activity Tolerance Assessment Summary Patient referred to PT due to syncope, vestibular specialist PT not available this date but signs and symptoms appear consistent with vestibular dysfunction. BP increased from supine to sit and then to stand as above. Strength symmetrical, balance steady though patient hesitant and requested use of FWW for safety today despite using cane and then nothing last week. Recommend she see vestibular specialist PT tomorrow in addition to her medical work up. Goals Bed Mobility Goal Independent Transfer Goal Independent Gait Goal Independent,Cane Gait Distance 150 Days to Meet Goals 7 Frequency of Treatment Frequency Of Treatment Once a Day Treatment Plan Physical Therapy Treatment Plan Bed Mobility Training,Transfer Training,Gait Training Other Recommendations and Next Treatment vestibular evaluation Focus Weight Bearing Status Weight Bearing Status Weight Bear as Tolerated Recommendations To Nursing Amount of Assist Needed 1 Person Assist Discharge Recommendations PT Discharge Recommendations Home with 24/ Assist Available Equipment Needed for Home Before recommend grab bars in Discharge bathroom Transportation Needs at Discharge Private Vehicle
--- NOTE | 2022-12-10 12:00 | CM.DANOTE ---
Initial Discharge Assessment Note: Case reviewed, met with patient and spouse. Introduced self and role. Payer: Osval[employer] [facility] PCP: Juma Ramos 77 year old female admitted with new onset fainting and falling at home. She is s/p L FERNANDO on 11.07.22. She is being worked up -- an Echo and imaging are scheduled for today. 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 She drives. PLAN: When medically cleared, discharge home to care of spouse. JESSICA Discharge Planning/Care Management Advanced directive, confirm from FAMILY Start: 12/09/22 21:26 Freq: Q24H Status: Active Protocol: Document 12/09/22 21:26 [facility] (Rec: 12/09/22 22:03 [facility] [id number]) Advance Directive, confirm on record Time 22:02 Person contacted Pt Copy received No CM Discharge Assessment Start: 12/10/22 11:59 Freq: Status: Active Protocol: Document 12/10/22 11:59 (Rec: 12/10/22 12:00 [id number]) Discharge Planning Assessment Assigned Marine Erector Taisha Inman RN/DCP Advance Directives? Yes Advance Directives on File No History Provided By Patient,Family Member,Medical Record Prior Living Arrangements House Household Members spouse Type of transporation used prior to Drives own vehicle admit Independent with ADL's Yes Is patient alert and oriented? Yes Caregiver for Another No Barriers to Discharge No Discharge Plan Home Transportation Arrangement Family Referrals Initiated None needed Review Status In Process Next Review Type Continued Stay Review
--- NOTE | 2022-12-10 17:07 | OT.IPNOTE ---
Chart reviewed and discussed at length with patient. Pt feels fatigued from todays testing and would like to wait for vestibular testing tomorrow. Have discussed with e commerce marketing manager for requesting vestibular specialist to see pt for tomorrow. Will hold and continue to follow.
[2022-12-11] MEDS: ACETAMINOPHEN 325 MG TABLET 650 MG PO (01:36)
[2022-12-11 04:25] VITALS: BP 120/52; PULSE 68; RESP 18; TEMP 37.2; O2SAT 95
[2022-12-11 05:53] LABS: Add Manual Diff / Slide Review NO; Basophils Absolute Auto 100 /uL (0-100); Basophils Percent Auto 1.1 % (0-2); Eosinophils Absolute Auto 200 /uL (0-450); Eosinophils Percent Auto 3.2 % (2-4); Hematocrit 33.6 % (36-46); Hemoglobin 11.6 g/dL (12.0-16.0); Lymphocytes Absolute Auto 2300 /uL (1100-4500); Lymphocytes Percent Auto 34.7 % (25-40); Mean Corpuscular HGB Conc 34.4 % (30-36); Mean Corpuscular Hemoglobin 30.5 PG (26-34); Mean Corpuscular Volume 88.5 fL (80-100); Monocytes Absolute Auto 400 /uL (0-900); Monocytes Percent Auto 6.4 % (3-14); Neutrophils Absolute Auto 3600 /uL (1500-7000); Neutrophils Percent Auto 54.6 % (50-75); Platelet Count 250 X10^3/uL (150-400); Red Cell Distribution Width 13.5 % (11.6-14.8); White Blood Cell Count 6.5 X10^3/uL (4.5-11.0)
[2022-12-11 06:03] LABS: Blood Urea Nitrogen 14 mg/dL (7-17); Calcium 8.7 mg/dL (8.4-10.2); Carbon Dioxide 28 mmol/L (22-32); Chloride 104 mmol/L (98-107); Estimated Glomerular Filt Rate > 60 mL/min (>60); Glucose 100 mg/dL (80-110); HEMOLYSIS < 15 (0-50); Potassium 3.7 mmol/L (3.4-5.1); Sodium 138 mmol/L (137-145)
--- NOTE | 2022-12-11 07:00 | DI.US.S_ITS ---
PROCEDURE: US CAROTID DOPPLER BI INDICATIONS: Recurrent Syncope TECHNIQUE: Color and pulse Doppler interrogation was performed of both carotid systems, with image documentation and velocity measurements. COMPARISON: None. FINDINGS: Stenosis calculations are based on SRU (Society of Radiologists in Ultrasound) criteria. Right side: Brachial blood pressure: 142/65 mm Hg. Common carotid artery peak systolic velocity: 92 cm/sec. Internal carotid artery peak systolic velocity: 84 cm/sec. Internal carotid artery end diastolic velocity: 15 cm/sec. External carotid artery peak systolic velocity: 82 cm/sec. ICA/CCA peak systolic ratio: 0.9. Coleman scale imaging description: Mild atheromatous plaque at the bifurcation. Percent internal carotid artery stenosis: Less than 50% stenosis. Vertebral artery: Flow direction is antegrade. Left side: Brachial blood pressure: 148/61 mm Hg. Common carotid artery peak systolic velocity: 122 cm/sec. Internal carotid artery peak systolic velocity: 96 cm/sec. Internal carotid artery end diastolic velocity: 26 cm/sec. External carotid artery peak systolic velocity: 81 cm/sec. ICA/CCA peak systolic ratio: 0.8. Coleman scale imaging description: Atheromatous plaque is present at the carotid bifurcation. Percent internal carotid artery stenosis: Less than 50% stenosis. Vertebral artery: Flow direction is antegrade. IMPRESSION: Less than 50% stenosis of the bilateral carotid arteries. Dictated by: Liliana Ratliff M.D. on 12/11/2022 at 9:47 Approved by: Liliana Ratliff M.D. on 12/11/2022 at 9:50
[2022-12-11] MEDS: ENOXAPARIN 40 MG/0.4 ML SYRINGE SUBCUT (08:18)
[2022-12-11] MEDS: FAMOTIDINE 20 MG TABLET PO (08:19)
[2022-12-11] MEDS: LORATADINE 10 MG TABLET PO (08:19)
--- NOTE | 2022-12-11 08:20 | OT.IP.EVAL ---
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 Mobility and Gait pt s/p left FERNANDO 11/07/22, [facility] , last progressed to walking in house with no device Activities of Daily Living and IADL's indep Prior Functional Level (Other details) indep, does report occasional episodes of dizziness in the past. 20 years ago had PT for dizziness including a maneuver which was helpful. Social History Household Members spouse Living Arrangements House Number of Floors (Floors) One Floor Number of Stairs To Enter/Railing? 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 M2 OT-IP Current Condition Start: 12/11/22 10:38 Freq: Status: Active Protocol: Document 12/11/22 10:38 CGR (Rec: 12/11/22 10:50 CGR [id number]) Occupational Therapy Current Condition Current Condition Evaluation Date 12/11/22 Treatment Diagnosis syncope concern for BPPV Diagnosis Onset Date 12/09/22 M3 OT- IP Subjective and Pain Start: 12/11/22 10:38 Freq: Status: Active Protocol: Document 12/11/22 10:38 CGR (Rec: 12/11/22 10:50 CGR [id number]) OT- Subjective Occupational Therapy Visit Type Type Initial Evaluation Visit Start Time 07:55 Visit Stop Time 08:20 Total Visit Minutes 25 OT Pain Assessment Pain When Pain Assessed At Rest Pain Present Pain Present Denied Pain M4 OT- IP ADL's Start: 12/11/22 10:38 Freq: Status: Active Protocol: Document 12/11/22 10:38 CGR (Rec: 12/11/22 10:50 CGR [id number]) OT BTN-[id number]-[id number] General Evaluation Self-Feeding Ability Independent Comments OT Self-Feeding Comments breakfast OT ADL-Grooming General Evaluation Grooming Ability Standby Assistance Comments OT Grooming Comments washed hands standing at sink OT ADL-Oral Care Comments Oral Care Comments not performed, pt states that she will brush teeth after breakfast. OT ADL-Dressing General Eval Lower Body Dressing Ability Standby Assistance Areas Needing Assistance Socks Comments OT Dressing Comments seated OT ADL-Toileting General Evaluation Toileting Ability Standby Assistance Comments OT Toileting Comments seated on toilet OT ADL-Bathing Comments OT Bathing Comments not performed M5 OT- IP IADL's Start: 12/11/22 10:38 Freq: Status: Active Protocol: Document 12/11/22 10:38 CGR (Rec: 12/11/22 10:50 CGR [id number]) OT-Instrumental Activities of Daily Living Deficits IADL Deficits Identified No Deficits Home Safety Awareness Awareness of Need for Assistance at Home Good Awareness Ability to Problem Solve Emergency Able to Problem Solve Situations Medication Management Medication Management No Deficits Identified Money Management Money Management No Deficits Identified Meal Preparation Meal Preparation No Deficits Identified Music Education Director Music Education Director No Deficits Identified Driving Driving Concerns Identified Regarding Safety Driving Comments Pt states she passed out twice without any symptoms notifying her ahead of time. M6 OT- IP Functional Cognition Start: 12/11/22 10:38 Freq: Status: Active Protocol: Document 12/11/22 10:38 CGR (Rec: 12/11/22 10:50 CGR [id number]) Cognitive Factors Limiting Selfcare Function Cognitive Ability Level of Alertness Alert Patient Orientation Name,Age,Birthday,Month,Date, Year,Day of Week,Place, Situation Attention Span Ability Capable of Focused Attention, Capable of Sustained Attention Ability to Follow Commands Able to Follow One Step Commands with Increased Time, Able to Follow One Step Commands with Repetition OT- Vision and Hearing OT- Vision Assessment Vision History Cataracts Visual Acuity Glasses For Reading Visual Attentiveness WFL Occular Pursuits WFL Visual Convergence WFL Vision Assessment Comments Pt has a hx of cateract sx and uses readers. M7 OT- IP Mobility and Balance Start: 12/11/22 10:38 Freq: Status: Active Protocol: Document 12/11/22 10:38 CGR (Rec: 12/11/22 10:50 CGR [id number]) OT- Bed Mobility Assessment Supine to Sit Supine to Sit Assist Standby Assistance Scooting Scooting to Edge of Bed Standby Assistance OT-Transfer Assessment Sit to and From Stand Sit to and from Stand Standby Assistance Transfers Transfer Ability Standby Assistance Technique Transfer Destination Bed,Chair,Toilet Transfer Technique Stand Step Pivot Devices Transfer Assistive Devices Gait Belt,Front Wheeled Walker OT- Balance Assessment Sitting Balance and Reactions Static Sitting Balance Ability Normal Dynamic Sitting Balance Ability Normal M8 OT- IP Objective Assessments Start: 12/11/22 10:38 Freq: Status: Active Protocol: Document 12/11/22 10:38 CGR (Rec: 12/11/22 10:50 CGR [id number]) OT Gross Range of Motion Upper Extremity Range of Motion Assessment Within Functional Limits OT Strength Upper Extremity Strength Assessment Bilaterally Impaired Comments Strength Comments Grossly 4-/5 to the RUE and left side 3+/5 OT- Coordination Assessment Upper Extremity Finger to Nose Test Within Functional Limits Finger Tapping Test Within Functional Limits OT-Muscle Tone Assessment Muscle Tone WNL Yes OT Sensation Assessment Edema Edema Absent M9 OT- IP Assessment and Plan Start: 12/11/22 10:38 Freq: Status: Active Protocol: Document 12/11/22 10:38 CGR (Rec: 12/11/22 10:50 CGR [id number]) OT Summary Assessment and Plan Potential Rehabilitation Potential Good Analytic Complexity at Evaluation Moderate Summary OT Impairments Strength,Balance,Functional Mobility,Shower Transfers, Activity Tolerance Progress Towards Goals Progressing Toward Goals Assessment Summary Pt presents as a moderate complexity evaluation s/p admit for dizziness and syncope. What pt describes does not appear to be BPPV although she will be tested with P.T. this afternoon. Pt appears to display dizziness with looing down and to the left, pt was able to prevent this with activity today. Pt states that her passing out was not precipitated by dizziness and states that she had no notice that she was going to pass out. Pt is grossly weak with 4-/5 to the RUE and 3+/5 to the LUE. Pt is likely safe for discharge home with family support but recommend follow up with outpatient PT. Goals Grooming Goal Independent Dressing Goal Independent Toileting Goal Independent Bathing Goal Independent Toilet Transfer Goal Independent Shower Transfer Goal Independent Days to Meet Goals 3 Frequency of Treatment Frequency Of Treatment Once a Day Treatment Plan OT Treatment Plan ADL Training,Functional Mobility,Patient/Family Education,Discharge Planning Other Treatment Recommendations and Next shower Treatment Focus Discharge Recommendations OT Discharge Recommendations Home with Assistance Transportation Needs at Discharge Private Vehicle
[2022-12-11 10:27] VITALS: BP 137/57; BP 137/74; BP 151/61; PULSE 79; PULSE 84; RESP 16; TEMP 36.3; O2SAT 96
--- NOTE | 2022-12-11 11:36 | P.DS_ITS ---
History of Present Illness History of Present Illness Date Patient Seen: 12/11/22 Time Patient Seen: 11:36 Chief complaint: Syncope Narrative: Per admitting provider, Alise Valdez is a 76yo F with PMH of recent bilateral hip replacements, GERD, and seasonal allergies who presents with syncope x2. Patient states she woke up this morning and used the restroom and while on the toilet patient became faint and almost passed out. She did not fully lose consciousness. She was seen in out ED and had reassuring workup so was sent home. She then had lunch with her and about 5 minutes after eating she passed out. She came to quickly and had no confusion following. She was brought back to the ED and admitted for syncope workup. Patient states she currently feels well. She reports she has been having some vertigo lately with nausea. Vertigo seems to be worse when turning her head to the left and is intermittent and not constant. She denies CP, seizure-like activity, headache, SOB, abd pain, or diarrhea. Discharge Providers Provider Date of admission: 12/09/22 18:06 Discharge Date: 12/11/22 Primary care physician: Juma Ramos ND Consults: 12/09/22 19:11 Consult to Occupational Therapy Evaluate & Treat Comment: please do jose angel mendez Physician Instructions: Evaluate and treat 12/10/22 10:13 Consult to Physical Therapy Evaluate & Treat Comment: Physician Instructions: Evaluate and Treat Discharge provider: Gabino Griffin DO Summary Hospital Course Discharge Diagnosis: Recurrent Syncope Vertigo #GERD concern for neurogenic disordeer Hospital Course: This is a 76 year old female admitted for further evaluation after 2 back to back episodes of syncope. MRI was performed and was negative for infarction. Echocardiogram showed mild aortic stenosis but not likely severe enough to lead to syncopal episodes. Carotid dopplers were similarly unremarkable. Telemetry monitoring was unremarkable during her hospitalization. She had no recurrence of syncope or symptoms after admission. The etiology for her syncope is not readily apparent at the time of discharge. There is concern for a possible neurogenic cause based on provider evaluation yesterday, however this was not noted on the day of discharge. Patient did well with physical and occupational therapies, and was cleared for discharge home. She did not exhibit signs for BPPV, so vestibular therapy was not deemend to be necessary though she should continue with outpatient therapies. Also performed carotid sinus massage to evaluate for carotid sinus syncope prior to discharge and evaluation was negative as well. It is unclear if there is an underlying cardiac arrythmia leading to syncope, so I recommend additional evaluation with a holter monitor with PCP. Based on her symptoms, can consider referral to neurology as well depending on evaluation as an outpatient. Time Spent with Patient Time spent: Greater than 30 minutes Exam Vital Signs (past 8 hours): - 12/11/22 04:25 12/11/22 10:27 12/11/22 10:27 Temperature 98.9 F 97.3 F L Pulse Rate 68 79 Pulse Rate [Orthostatic Lying] 79 Pulse Rate [Orthostatic Sitting] 79 Pulse Rate [Orthostatic Standing] 84 Respiratory Rate 18 16 Blood Pressure 120/52 L 151/61 H Blood Pressure [Orthostatic Lying] 151/61 H Blood Pressure [Orthostatic Sitting] 137/57 L Blood Pressure [Orthostatic Standing] 137/74 Pulse Oximetry 95 96 Oxygen Flow Rate 0 Oxygen Delivery Method Room Air Oxygen Flow Rate 0 Narrative Exam Narrative: GEN: no acute distress HEENT: dry mucous membranes, PERRL NECK: trachea midline, no JVD CV: regular rate and rhythm, no murmurs PULM: clear bilaterally ABD: soft, nontender, nondistended, no organomegaly EXT: warm and well perfused with no edema NEURO: awake, alert, oriented, no focal deficits Objective Labs 12/11/22 05:35 12/11/22 05:35 Labs: Laboratory Results - last 24 hr 12/11/22 12/11/22 05:35 05:35 WBC 6.5 RBC 3.80 L Hgb 11.6 L Hct 33.6 L MCV 88.5 MCH 30.5 MCHC 34.4 RDW 13.5 Plt Count 250 Neut % (Auto) 54.6 Lymph % (Auto) 34.7 Gates % (Auto) 6.4 Eos % (Auto) 3.2 Baso % (Auto) 1.1 Neut # (Auto) 3600 Lymph # (Auto) 2300 Gates # (Auto) 400 Eos # (Auto) 200 Baso # (Auto) 100 Sodium 138 Potassium 3.7 Chloride 104 Carbon Dioxide 28 BUN 14 Creatinine 0.56 Estimated GFR > 60 BUN/Creatinine Ratio 25.0 H Glucose 100 Calcium 8.7 PFSH Medical History Arthritis GERD with esophagitis History of Mohs micrographic surgery for skin cancer (02/2021) Hypoglycemia Insomnia Osteoarthritis Seasonal allergies Surgical History History of bunionectomy of both great toes 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 No exact etiology was found, but you had reassuring testing including MRI, EKGs, Echocardiogram, and carotid ultrasound. Recommend holter monitoring with PCP, no medication changes are recommended. Please use caution when up and moving around, try to get up slowly and avoid rapid changes in your head position. Discharge orders & Medications Prescriptions: Continued fluticasone propionate [Flonase Allergy Relief] 50 mcg/actuation [place],Suspension 2 spray INTRANASAL DAILY PRN (Reason: Seasonal allergies) naproxen sodium [Aleve] 220 mg Capsule 220 mg PO BID PRN (Reason: Pain (Scale Score 1-3)) famotidine [Pepcid] 20 mg Tablet 20 mg PO DAILY multivitamin Tablet 1 tab PO DAILY loratadine [Claritin] 10 mg Tablet 10 mg PO DAILY Medication counseling provided by Pharmacist: Yes Follow up/Referrals: Juma Ramos ARNP [Primary Care Provider] - 1 Week Diet/Activity/Treatments Diet: Diet as Tolerated and Regular Activity: As tolerated, no specific restrictions but no sudden head movements recommended. Visit Report/Discharge Packet Instructions: DI for Syncope in Adults (Fainting) Stand Alone Forms: Patient Portal/API, Stroke Signs & Symptoms Discharge Data Primary Care Provider: Juma Ramos Attending Provider: Kvng Blank Admit Date/Time: 12/09/22 18:06
--- NOTE | 2022-12-11 11:59 | PT.IPTN ---
Physical Therapy Treatment Note M2 PT-IP Current Condition Start: 12/10/22 10:43 Freq: NEEDED Status: Active Protocol: Document 12/10/22 11:27 SAK (Rec: 12/10/22 11:48 SAK [id number]) Physical Therapy Current Condition Current Condition Evaluation Date 12/10/22 Treatment Diagnosis syncope Onset Date 12/08/22 M3 PT-IP Subjective Start: 12/10/22 10:43 Freq: NEEDED Status: Active Protocol: Document 12/11/22 11:59 AW (Rec: 12/11/22 12:17 AW [id number]) Subjective Physical Therapy Visit Type Type Treatment Note Visit Start Time 11:35 Visit Stop Time 11:59 Total Visit Minutes 24 Physical Therapy Visit Comments Patient Comments Pt denies dizziness today, stating she has been careful to avoid looking down and to the left. Therapy Pain Assessment Pain When Pain Assessed At Rest Pain Present Pain Present Denied Pain M4 PT-IP Mobility and Gait Start: 12/10/22 10:43 Freq: NEEDED Status: Active Protocol: Document 12/11/22 11:59 AW (Rec: 12/11/22 12:17 AW [id number]) PT-Transfer Assessment Sit to and From Stand Sit to and from Stand Standby Assistance Equipment Transfer Assistive Device Gait Belt,Front Wheeled Walker Orthotic/Prosthetic Devices or Brace: No Transfers Transfer Destination Chair Transfer Technique Stand Step Pivot Transfer Ability Level of Assist Standby Assistance Comments Mobility Comments VS stable. Denied dizziness during transfers. Gait Assessment Gait Gait Assistance Required: Standby Assistance Distance (Feet) 150 Assistive Devices Assistive Device Front Wheeled Walker Gait Deviations General Gait Pattern Decreased Stride Length, Decreased Feet Clearance Factors Limiting Gait Function Factors Limiting Gait Function Decreased Strength Comments Gait Comments Pt wanting to use FWW to improve stability, increase confidence. PT-Balance Assessment Sitting Balance and Reactions Static Sitting Balance Ability Normal Dynamic Sitting Balance Ability Normal Standing Balance and Reactions Static Standing Balance Ability Good Dynamic Standing Balance Ability Good Device Used FWW M5 PT-IP Objective Assessments Start: 12/10/22 10:43 Freq: NEEDED Status: Active Protocol: Document 12/10/22 11:27 SAK (Rec: 12/10/22 11:48 SAK [id number]) Orientation Orientation/Cognition Level of Alertness Alert Orientation Name,Age,Place,Situation Language Function Ability No Deficits Noted Safety Awareness Understands Safety Issues Memory Description No Deficits Noted Gross Range of Motion Lower Extremity ROM Assessment Within Functional Limits Strength Lower Extremity Strength Assessment Within Functional Limits Coordination Assessment Gross Coordination Gross Coordination WNL Sensation Assessment Sensation Gross Sensation WNL Muscle Tone Muscle Tone WNL Yes M6 PT-IP Treatment Start: 12/10/22 10:43 Freq: NEEDED Status: Active Protocol: Document 12/11/22 11:59 AW (Rec: 12/11/22 12:17 AW [id number]) Physical Therapy Treatment Education Education Provided Precautions,Safety Other Treatments Other Treatment Performed Educated on further vestibular assessment to include Jorje- Hallpike and Mouna if indicated. Pt declined. M7 PT-IP Assessment and Plan Start: 12/10/22 10:43 Freq: NEEDED Status: Active Protocol: Document 12/11/22 11:59 AW (Rec: 12/11/22 12:17 AW [id number]) PT Summary Assessment and Plan Potential Rehabilitation Potential Good Summary Impairments Bed Mobility,Transfers, Activity Tolerance Progress Towards Goals Progressing Toward Goals,Safe For Discharge Assessment Summary Orthostatic VS have been unremarkable since admission. Pt states she has avoided dizziness by being more conscious of her head position during mobility. She denies symptoms while getting in and out of bed. PT assessed ocular motor and vestibular systems with no significant findings. Pt is able to turn her head horizontally and vertically to end ranges without dizziness but is provoked by looking down and to her left. 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 Therapist explained further vestibular assessment to the patient but also explained that it would not yield any diagnostic information. Pt declined positional assessment or maneuvers, stating preference to follow up as an outpatient. Pt is mobilizing well with FWW and is happy to discharge home. PT recommends outpatient follow up with vestibular therapist if symptoms persist. No further acute PT needs are identified. Goals Bed Mobility Goal Independent Transfer Goal Independent Gait Goal Independent,Cane Gait Distance 150 Days to Meet Goals 7 Frequency of Treatment Frequency Of Treatment Discharge Discharge Recommendations Transportation Needs at Discharge Private Vehicle
--- NOTE | 2022-12-11 13:37 | CM.DPC ---
DCP Discharge Home Per MD, pt medically stable to d/c home today with outpt f/u after final PT today around 1300 and no identified barriers to discharge. Per PT, met with pt today and discussed vestibular assessment and pt has done this about 20 yrs ago with success but pt would prefer to participate in this in the outpt setting and PT recommending safe d/c home with outpt f/u. Plan: Pt to d/c home today via spouse POV and outpt f/u with PT and pt active and independent and working at baseline and no further SW needs at this time. Nahomi Braxton, SENIOR BIOSTATISTICIAN/GROUP LEADER
== END 2022-12-11 15:00 | disposition home or self-care (01) ==
LOC: ED 17:17 → AC 18:07
PROVIDERS: Admitting Provider Student in an Organized Health Care Education/Training Program; Emergency Provider Emergency Medicine; PCP Registered Nurse; Referring Provider Emergency Medicine; Visit Provider Student in an Organized Health Care Education/Training Program
DX: H81.10 Benign paroxysmal vertigo, unspecified ear (principal); K21.9 Gastro-esophageal reflux disease without esophagitis; Z96.643 Presence of artificial hip joint, bilateral; R55 Syncope and collapse
CPT/HCPCS: 36415; 70450; 70551; 71045; 71275; 73130; 73502; 73562; 80048; 80053; 81003; 82550; 83605; 83690; 83735; 84484; 85025; 85610; 85730; 93005; 93010; 93306; 93880; 96360; 96361; 96372; 96374; 97112; 97116; 97162; 97166; 97535; 99283; 99284; G0378; A9270; J1650; J1885; Q9967

== ENCOUNTER → 2023-03-07 07:38 | Outpatient (CLI) | payer MEDICARE, SELFPAY ==
[2022-12-09 21:17] VITALS: BMI 25.0
--- NOTE | 2023-03-07 | DI.MG.S_ITS ---
BILATERAL DIGITAL SCREENING MAMMOGRAM 3D/2D WITH CAD: 03/07/2023 CLINICAL: Routine screening. Family history of breast cancer. Comparison is made to exams dated: 03/02/2022 mammogram, 02/03/2021 mammogram, and 01/14/2020 mammogram - [facility]. Both breasts are heterogeneously dense, which may obscure small masses (category c / 51-75% glandular tissue). Current study was also evaluated with a Computer Aided Detection (CAD) system. No significant masses, calcifications, or other findings are seen in either breast. There has been no significant interval change. IMPRESSION: NEGATIVE There is no mammographic evidence of malignancy. A 1 year screening mammogram is recommended. Based on the Tyrer Cuzick model (a risk assessment model) the patient's lifetime risk is 14.4% and her 10 year risk is 0.0%. According to the ACR, ACS, and NCCN guidelines, an annual breast MRI exam along with mammogram is recommended if the patient's lifetime risk is 20% or greater. This exam was interpreted at Station ID: [id number]. NOTE: For mammograms, a report in lay terms will be sent to the patient. Approximately 15% of breast malignancies will not be visualized mammographically. In the management of a palpable breast mass, a negative mammogram must not discourage biopsy of a clinically suspicious lesion. Electronically Signed By: Masood valencia/bethanie:03/07/2023 15:15:37 letter sent: Normal Exam ACR BI-RADS Category 1: Negative [id number]
== END ==
PROVIDERS: PCP Registered Nurse; Referring Provider Registered Nurse; Visit Provider Registered Nurse
DX: Z12.31 Encounter for screening mammogram for malignant neoplasm of breast (principal); Z80.3 Family history of malignant neoplasm of breast
CPT/HCPCS: 77063; 77067

== ENCOUNTER → 2024-03-20 | Outpatient (CLI) | payer MEDICARE, SELFPAY ==
[2022-12-09 21:17] VITALS: BMI 25.0
--- NOTE | 2024-03-20 15:00 | DI.MG.S_ITS ---
BILATERAL DIGITAL SCREENING MAMMOGRAM 3D/2D WITH CAD: 03/20/2024 CLINICAL: Routine screening. Family history of breast cancer. Comparison is made to exams dated: 03/07/2023 mammogram, 03/02/2022 mammogram, and 02/03/20[address] mammogram - [facility]. The breasts are heterogeneously dense, which may obscure small masses (category c / 51-75% glandular tissue). Current study was also evaluated with a Computer Aided Detection (CAD) system. No significant masses, calcifications, or other findings are seen in either breast. There has been no significant interval change. IMPRESSION: NEGATIVE There is no mammographic evidence of malignancy. A 1 year screening mammogram is recommended. Based on the Tyrer Cuzick model (a risk assessment model) the patient's lifetime risk is 13.4% and her 10 year risk is 0.0%. According to the ACR, ACS, and NCCN guidelines, an annual breast MRI exam along with mammogram is recommended if the patient's lifetime risk is 20% or greater. This exam was interpreted at Station ID: [id number]. NOTE: For mammograms, a report in lay terms will be sent to the patient. Approximately 15% of breast malignancies will not be visualized mammographically. In the management of a palpable breast mass, a negative mammogram must not discourage biopsy of a clinically suspicious lesion. Electronically Signed By: Charlie daley/bethanie:04/08/2024 14:30:49 letter sent: Normal Exam ACR BI-RADS Category 1: Negative
== END ==
PROVIDERS: PCP Family Medicine; Referring Provider Family Medicine; Visit Provider Family Medicine
DX: Z12.31 Encounter for screening mammogram for malignant neoplasm of breast (principal); Z80.3 Family history of malignant neoplasm of breast; R92.333 Mammographic heterogeneous density, bilateral breasts
CPT/HCPCS: 77063; 77067

== ENCOUNTER 2024-05-13 09:12 | Day surgery (SDC) | payer MEDICARE, SELFPAY ==
[2022-12-09 21:17] VITALS: BMI 25.0
[2024-05-13 10:32] VITALS: BP 147/67; PULSE 75; RESP 14; TEMP 37.1; O2SAT 98
--- NOTE | 2024-05-13 11:31 | P.HP_ITS ---
History of Present Illness History of Present Illness Date Patient Seen: 05/13/24 Time Patient Seen: 11:31 [place] [facility] [place]ative: 78-year-old woman personal history of colonic polyps here for screening colonoscopy. Last colonoscopy 2017. Family history of cancer. History of chronic constipation PENDING SALE TO [facility] Medical History Actinic keratosis (~2013) Allergies Foot pain (~2019) Mumps (~1951) Vertigo Hearing loss Lichen planus (~2010) History of Mohs micrographic surgery for skin cancer (02/2021) Seasonal allergies Arthritis Hypoglycemia GERD with esophagitis (~2019) Insomnia Osteoarthritis Surgical History Dupuytren's contracture of right hand (~06/2009) Status post Mohs surgery (~2020) Anesthesia Status post osteotomy History of total left hip replacement (~11/2022) Hx of bilateral cataract extraction (2020) Hx of tooth extraction (11/2021) 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) Hx of oral surgery (~06/2018) Hx of hand surgery History of bunionectomy of both great toes Family History Father Cancer Mother Cancer Sister Stroke Sister Hypertension Grandfather Stroke Grandmother Cancer Grandmother Flu Social History household members: spouse Smoking Status: Never smoker alcohol intake: current Meds Home Medications and Allergies Home Medications Medication Instructions Recorded Confirmed Type fluticasone propionate 50 2 spray intranasal DAILY PRN 03/13/19 05/13/24 History mcg/actuation nasal Seasonal allergies spray,suspension (Flonase Allergy Relief) famotidine 20 mg tablet (Pepcid) 20 mg PO DAILY 11/01/22 05/13/24 History loratadine 10 mg tablet (Claritin) 10 mg PO DAILY 11/07/22 01/24/24 History ketoconazole 2 % shampoo topical 01/24/24 01/24/24 History sodium,potassium,mag sulfates 17.5 See Rx Instructions PO .COMPLEX 04/08/24 Rx gram-3.13 gram-1.6 gram oral soln #354 mL (Suprep Bowel Prep Kit) Allergies Allergy/AdvReac Type Severity Reaction Status Date / Time latex Allergy Severe Red skin, Verified 05/13/24 10:29 welts amoxicillin Allergy Intermediate Itching to Verified 05/13/24 10:29 hands/feet epinephrine AdvReac Severe Hyperactive, Verified 05/13/24 10:29 dizziness Exam Vital Signs (past 8 hours): - 05/13/24 10:32 Temperature 98.7 F Pulse Rate 75 Respiratory Rate 14 Blood Pressure 147/67 H Pulse Oximetry 98 Oxygen Delivery Method Room Air Oxygen Delivery Method Room Air Narrative Exam Narrative: General adult woman alert oriented no acute distress Chest nonlabored respiration Extremities warm well perfused Assessment & Plan Assessment and plan (1) Personal history of colonic polyps: Status: Acute Assessment & Plan narrative: The patient requires colorectal screening and colonoscopy is recommended. Technical details were discussed. Risks, benefits, alternatives explained. Risks including but not limited to myocardial infarction, aspiration, bleeding, pain, missed lesion, incomplete examination, need for further radiographic studies, intestinal injury, and need for major abdominal surgery were discussed. All questions were answered to their satisfaction, and they are in agreement with this plan. Time-Based Coding :: [TOTAL MINUTES] spent with patient and on the chart (including review of chart, obtaining history, exam, reviewing outside data, placing orders, documenting exam and treatment plan, and counseling patient) on [DATE].
[2024-05-13 12:05] VITALS: BP 115/58; PULSE 63; RESP 12; TEMP 36.6; O2SAT 95
--- NOTE | 2024-05-13 12:09 | P.OP.COLON_ITS ---
Operative Date/Time/Diagnoses Date of procedure: 05/13/24 Time of procedure: 12:09 Pre-op diagnosis: Colorectal Procedure & Clinicians Study performed: Screening colonoscopy Same procedure as scheduled: Yes Indications: Screening Surgeon: Gigi Veloz Procedure Notes Procedure in detail: The history and physical was performed/updated and the patient is ASA class is 2. The procedure was discussed in detail with the patient. Potential risks complications including infection, bleeding, missed diagnosis, perforation, need for surgery, and were explained. Their questions were answered and informed consent was obtained. Patient was brought to the procedure room and placed standard monitoring equipment. The patient's vital signs were monitored continuously throughout the entire procedure. Prior to starting time-out was performed. The patient was pl aced in the left lateral recumbent position. Procedural sedation was administered by anesthesia. Examination began with a thorough inspection of the perianal area there was no evidence of fissures, fistulae, external hemorrhoids or cutaneous malignancy. The colonoscopy scope was then placed into the anal canal and was advanced to the cecum, which was identified by the ileocecal valve, the appendiceal orifice and the confluence of the taenia. The scope was then slowly withdrawn examining colon thoroughly in all directions, irrigating it of any residual stool. The scope was retroflexed within the rectum The patient tolerated the procedure well. They will be discharged once criteria are met. The prep was of good/excellent quality. The withdrawl time was 6 minutes. FINDINGS * Extensive diverticulosis of the entirety of the colon. * No polyps Specimen(s): none sent Impression: Diverticulosis Post-procedure Recommendations: High fiber diet Disposition: same day surgery
[2024-05-13 12:10] VITALS: BP 115/57; PULSE 63; RESP 14; O2SAT 96
[2024-05-13 12:15] VITALS: BP 134/50; PULSE 83; RESP 17; TEMP 36.3; O2SAT 96
== END 2024-05-13 12:26 | disposition home or self-care (01) ==
PROVIDERS: PCP Family Medicine; Referring Provider Surgery; Visit Provider Surgery
PROC: 0DJD8ZZ Inspection of Lower Intestinal Tract, Via Natural or Artificial Opening Endoscopic (ICD-10-PCS; CPT 45378; principal; 2024-05-13 10:45)
DX: Z12.11 Encounter for screening for malignant neoplasm of colon (principal); Z86.0100 Personal history of colon polyps, unspecified; K57.30 Diverticulosis of large intestine without perforation or abscess without bleeding
CPT/HCPCS: G0105; J2704

== ENCOUNTER → 2024-08-22 10:02 | Outpatient (CLI) | payer MEDICARE, SELFPAY ==
[2022-12-09 21:17] VITALS: BMI 25.0
--- NOTE | 2024-08-22 10:03 | DI.RAD.S_ITS ---
PROCEDURE: XR DEXA AXIAL SKELETON INDICATIONS: SCREENING FOR OSTEOPOROSIS COMPARISON: [facility], [place], XR DEXA AXIAL SKELETON, 05/16/2018, 10:34. FINDINGS: Lumbar Spine: Bone mineral density 0.978 (previously 1.040) g/cm2, T score -0.9 (previously-1.2). Left Forearm: Bone mineral density 0.587 g/cm2, T score -1.8. (T score greater or equal to -1.0 to: NORMAL) (T score from -1.1 to -2.4: OSTEOPENIA) (T score less than or equal to -2.5: OSTEOPOROSIS) IMPRESSION: Osteopenia---recommend repeat DEXA in 2 years or less for reassessment of response to treatment. Follow-up guidelines as follows: Osteoporosis: Consider a repeat DEXA and Vertebral Fracture Assessment (VFA) exam in 2 years or sooner if medically necessary, to reassess this patient's status. Osteopenia: Consider a repeat DEXA in 2-3 years to reassess this patient's status, or if there is a new clinical indication. Normal: Consider a repeat DEXA in 5 years or sooner, or if there is a new clinical indication. All treatment decisions require clinical judgment and consideration of individual patient factors, including patient preferences, comorbidities, previous drug use, risk factors not captured in the FRAX model (e.g., frailty, falls, vitamin D deficiency, increased bone turnover, interval significant decline in bone density ) and possible under- or over-estimation of fracture risk by FRAX. In addition, the NOF Guide recommends that FDA-approved medical therapies be considered in postmenopausal women and men age >= 50 years with a: * Hip or vertebral (clinical or morphometric) fracture * T-score of <=-2.5 at the spine or hip * Ten-year fracture probability by FRAX of >= 3% for hip fracture or >=20% for major osteoporotic fracture. Dictated by: Eladio Deal M.D. on 08/23/2024 at 6:21 Approved by: Eladio Deal M.D. on 08/23/2024 at 6:23
== END ==
PROVIDERS: PCP Family Medicine; Referring Provider Orthopaedic Surgery; Visit Provider Orthopaedic Surgery
DX: M85.832 Other specified disorders of bone density and structure, left forearm (principal); M81.0 Age-related osteoporosis without current pathological fracture; M81.6 Localized osteoporosis [Lequesne]; M81.8 Other osteoporosis without current pathological fracture
CPT/HCPCS: 77080; 77081

== ENCOUNTER → 2025-03-13 08:31 | Outpatient (CLI) | payer MEDICARE, SELFPAY ==
[2022-12-09 21:17] VITALS: BMI 25.0
[2025-03-13 09:17] LABS: Hemoglobin A1C% w Est Avg Glu 6.2 % (4.0-6.0)
[2025-03-13 10:43] LABS: Cholesterol 227 mg/dL (140-199); HDL Cholesterol 97 mg/dL (40-60); Triglycerides 62 mg/dL (35-150)
== END ==
PROVIDERS: PCP Family Medicine; Referring Provider Family Medicine; Visit Provider Family Medicine
DX: Z13.1 Encounter for screening for diabetes mellitus (principal); Z13.220 Encounter for screening for lipoid disorders
CPT/HCPCS: 36415; 80061; 83036

== ENCOUNTER → 2025-03-26 14:55 | Outpatient (CLI) | payer MEDICARE, SELFPAY ==
[2022-12-09 21:17] VITALS: BMI 25.0
--- NOTE | 2025-03-26 14:57 | DI.ECHO.S_ITS ---
[facility] : : [address] : : [place] : : [id number] : : Phone: [phone] Echocardiogram Report + + :Name: HAN MORALES Study Date: 03/26/2025 Height: 64 in : :[facility] ReadingLocation: Weight: 143 lb : : Gender: Female BSA: 1.7 m2 : :: 1945 Age: 79 yrs BP: 131/70 mmHg: :Reason For Study: Systolic murmur : :Ordering Physician: ARIANE, : :STEVENSON Gilmore Performed By: Francisco Roa : :Referring: STEVENSON THAKKAR : + + Interpretation Summary Normal LV size. Top normal LV systolic function. LVEF is 70 to 75%. No signs of LVOT flow acceleration. Aortic valve sclerosis without stenosis. Aortic valve sclerosis likely explains patient's systolic murmur. No significant valvular dysfunction is noted. Other findings as below. Procedure: A two-dimensional transthoracic echocardiogram with color flow and Doppler was performed in limited views only to assess aortic stenosis. The study quality was technically adequate. Comparison is made with the echocardiogram of 12/10/2022. The patient was in normal sinus rhythm during the exam. Left Ventricle: The left ventricle is normal in size. Left ventricular wall thickness is borderline increased. Left ventricular systolic function is normal. The ejection fraction is estimated to be 70-75%. There are no focal wall motion abnormalities. Right Ventricle: The right ventricle is normal in size and function. Atria: The left atrial size is normal. Mitral Valve: There is mild mitral annular calcification. The mitral valve leaflets appear to open well. There is no mitral valve stenosis. There is trace mitral regurgitation. Aortic Valve: The aortic valve is trileaflet. The aortic valve opens well. There is mild aortic valve sclerosis. There is no hemodynamically significant valvular aortic stenosis. There is mild aortic regurgitation. Tricuspid Valve: The tricuspid valve leaflets are thin and pliable. There is trace tricuspid regurgitation. Great Vessels: The IVC is of normal diameter and collapses greater than 50% with a sniff. This suggests a low right atrial pressure of 3 mm Hg. Pericardium/ Pleura There is no pericardial effusion. MMode/2D Measurements & Calculations LVIDd: 3.8 cm LVOT diam: 2.0 cm LVIDs: 2.4 cm FS: 36.8 % IVSd: 0.96 cm LVPWd: 0.97 cm LV ohara. diameter/BSA (cm/m^2): 2.3 LV sys. diameter/BSA (cm/m^2): 1.4 LA A2 area: 13.8 cm2 IVC diam: 1.6 cm LA A4 area: 14.8 cm2 LA length (vol): 4.7 cm LA vol: 36.6 ml LA vol index: 21.6 ml/m2 RVD1 (basal): 2.7 cm RVD2 (mid): 2.3 cm TAPSE: 2.0 cm Doppler Measurements & Calculations Ao V2 max: 166.5 cm/sec LVOT Max Enrique: 129.6 cm/sec Ao V2 mean: 122.8 cm/sec LV V1 max P.7 mmHg Ao max P.1 mmHg LV V1 VTI: 26.1 cm Ao mean P.7 mmHg KERRY(I,D): 2.1 cm2 Ao V2 VTI: 37.8 cm KERRY(V,D): 2.4 cm2 sev ratio: 0.69 KERRY indexed to BSA (cm^2/m^2): 1.3 AI P1/2t: 673.3 msec AI dec slope: 135.7 cm/sec2 SV(LVOT): 80.6 ml Reading Physician:03:49 PM
== END ==
LOC: ECHO 14:56
PROVIDERS: PCP Family Medicine; Referring Provider Family Medicine; Visit Provider Family Medicine
DX: I34.81 Nonrheumatic mitral (valve) annulus calcification (principal); I35.2 Nonrheumatic aortic (valve) stenosis with insufficiency; R01.1 Cardiac murmur, unspecified
CPT/HCPCS: 93307

== ENCOUNTER → 2025-05-07 15:38 | Outpatient (CLI) | payer MEDICARE, SELFPAY ==
[2022-12-09 21:17] VITALS: BMI 25.0
--- NOTE | 2025-05-07 15:39 | DI.MG.S_ITS ---
MM screening mammo BI: 05/07/2025. BI-RADS: 1 CLINICAL: 79-year old female for bilateral screening mammogram. Tyrer-Cuzick lifetime risk of 6.1%. Current reported family history of breast cancer: mother. PRIOR EXAMS 03/20/2024, 03/07/2023, 03/02/2022, 02/03/2021. MAMMOGRAPHY TECHNIQUE: 2D and 3D (tomosynthesis) digital mammographic views obtained, with additional images as needed for full coverage. Current study was also evaluated with a Computer Aided Detection (CAD) system. DENSITY C. The breasts are heterogeneously dense, which may obscure small masses. MAMMOGRAPHY FINDINGS Bilateral: No suspicious mass, asymmetry, microcalcification, or other abnormality seen. No significant change from comparison. IMPRESSION: * No evidence of malignancy. RECOMMENDATIONS Bilateral * Annual screening mammography. OVERALL ASSESSMENT CATEGORY BI-RADS-1: Negative. The [employer] recommends annual screening mammography beginning at age 40 for women with average risk of breast cancer. ELECTRONICALLY SIGNED: Lam Lo M.D. on 05/08/2025 at 10:14:31 AM PT Interpreting Station ID: [id number]
== END ==
LOC: MAMMO 15:39
PROVIDERS: PCP Family Medicine; Referring Provider Family Medicine; Visit Provider Family Medicine
DX: Z12.31 Encounter for screening mammogram for malignant neoplasm of breast (principal); R92.333 Mammographic heterogeneous density, bilateral breasts; Z80.3 Family history of malignant neoplasm of breast
CPT/HCPCS: 77063; 77067